=== PATIENT | female | born 1960 | race Caucasian/White ===

== ENCOUNTER → 2020-02-11 12:56 | Outpatient (CLI) | payer BC, SELFPAY ==
[2019-02-25 14:24] VITALS: BMI 26.4
--- NOTE | 2020-02-11 12:59 | BI_ITS ---
MAMMOGRAPHY - BILATERAL SCREENING REASON FOR EXAM: Female, 59 years old. Routine annual screening examination. PERTINENT HISTORY: Non-contributory. TECHNIQUE: Digital bilateral breast mayra (3D mammographic acquisition) in the CC and MLO projections. 2-D mediolateral oblique (MLO) and craniocaudad (CC) views of both breasts were obtained. CAD: Full Field Digital Mammography with Computer Added Detection was performed. COMPARISON: Comparison is made with prior outside examination dated 11/27/2017. FINDINGS: Breast Composition: There are scattered areas of fibroglandular density. There are no dominant masses or suspicious calcifications. Stable benign-appearing bilateral axillary lymph nodes. No other significant abnormalities are identified. There has been no significant change since the prior study. BI/SCREEN MAMM (CAD) W/MAYRA BILAT IMPRESSION: Stable bilateral screening mammogram. Yearly follow-up mammogram recommended. (A) ASSESSMENT CATEGORY: BIRADS Category 2: Benign. A letter regarding these results will be sent to the patient by the facility within 30 days. Approximately 10% of breast cancers are not detected by mammography. A normal mammogram should not delay biopsy of a clinically suspicious abnormality. [id number] Electronically Signed: Alejo Oliver, at 8:13 EDT , Service support ,
== END ==
PROVIDERS: PCP Family Medicine; Visit Provider Family Medicine
DX: Z12.31 Encounter for screening mammogram for malignant neoplasm of breast (principal)
CPT/HCPCS: 77063; 77067

== ENCOUNTER → 2021-02-14 13:01 | Outpatient (CLI) | payer OTHER, SELFPAY ==
--- NOTE | 2021-02-14 13:04 | BI_ITS ---
MAMMOGRAPHY - BILATERAL SCREENING REASON FOR EXAM: Female, 60 years old. Routine annual screening examination. PERTINENT HISTORY: Non-contributory. TECHNIQUE: Digital bilateral breast mayra (3D mammographic acquisition) in the CC and MLO projections. 2-D mediolateral oblique (MLO) and craniocaudad (CC) views of both breasts were obtained. CAD: Full Field Digital Mammography with Computer Added Detection was performed. COMPARISON: Comparison is made with prior study dated 02/11/2020 and 11/26/2013. FINDINGS: Breast Composition: There are scattered areas of fibroglandular density. There are no dominant masses or suspicious calcifications. Stable small benign-appearing bilateral axillary lymph nodes. No other significant abnormalities are identified. There has been no significant change since the prior study. BI/SCRN MAMM (CAD)W/MAYRA BILAT IMPRESSION: Stable bilateral screening mammogram. Yearly follow-up mammogram recommended. (A) ASSESSMENT CATEGORY: BIRADS Category 2: Benign. A letter regarding these results will be sent to the patient by the facility within 30 days. Approximately 10% of breast cancers are not detected by mammography. A normal mammogram should not delay biopsy of a clinically suspicious abnormality. [id number] Electronically Signed: Alejo Oliver MD at 14:28 EDT , Service support ,
== END ==
PROVIDERS: PCP Family Medicine; Referring Provider Family Medicine; Visit Provider Family Medicine
DX: Z12.31 Encounter for screening mammogram for malignant neoplasm of breast (principal)
CPT/HCPCS: 77063; 77067

== ENCOUNTER → 2022-02-15 | Outpatient (CLI) | payer BC, SELFPAY ==
--- NOTE | 2022-02-15 15:57 | BI_ITS ---
MAMMOGRAPHY - BILATERAL SCREENING REASON FOR EXAM: Female, 61 years old. Routine annual screening examination. PERTINENT HISTORY: Non-contributory. TECHNIQUE: Digital bilateral breast mayra (3D mammographic acquisition) in the CC and MLO projections. 2-D mediolateral oblique (MLO) and craniocaudad (CC) views of both breasts were obtained. CAD: Full Field Digital Mammography with Computer Added Detection was performed. COMPARISON: Comparison is made with prior study dated 02/14/2021 and 02/11/2020. FINDINGS: Breast Composition: There are scattered areas of fibroglandular density. There are no dominant masses or suspicious calcifications. Stable small benign-appearing bilateral axillary lymph nodes. No other significant abnormalities are identified. There has been no significant change since the prior study. BI/SCRN MAMM (CAD)W/MAYRA BILAT IMPRESSION: Stable bilateral screening mammogram. Yearly follow-up mammogram recommended. (A) ASSESSMENT CATEGORY: BIRADS Category 2: Benign. A letter regarding these results will be sent to the patient by the facility within 30 days. Approximately 10% of breast cancers are not detected by mammography. A normal mammogram should not delay biopsy of a clinically suspicious abnormality. [id number] Electronically Signed: Alejo Oliver MD at 8:37 EDT ,
== END | disposition home or self-care (01) ==
PROVIDERS: PCP Student in an Organized Health Care Education/Training Program; Visit Provider Student in an Organized Health Care Education/Training Program
DX: Z12.31 Encounter for screening mammogram for malignant neoplasm of breast (principal)
CPT/HCPCS: 77063; 77067

== ENCOUNTER → 2022-07-12 | Outpatient (CLI) | payer BC, SELFPAY ==
[2022-07-12 10:08] LABS: Hematocrit 43.6 % (37-47); Hemoglobin 14.3 g/dL (12.0-15.0); Mean Corp Hgb Conc 32.8 g/dL (32-36); Mean Corpuscular Hgb 29.8 pg (27.0-32.0); Mean Corpuscular Volume 90.8 fL (81-99); Mean Platelet Vol. 8.6 fl (6.2-12.0); Platelet Count 466 K/mm3 (150-450); RBC Distribution Width CV 12.4 % (11.6-14.6); RBC Distribution Width SD 41.2 fl (35.1-43.9); White Blood Count 7.1 K/mm3 (4.4-11.0)
[2022-07-12 10:25] LABS: AST(SGOT) 18 U/L (15-37); Alanine Aminotransfer ALT/SGPT 34 U/L (13-56); Albumin, Serum 3.8 g/dL (3.2-5.0); Alkaline Phosphatase 49 U/L (45-117); Anion Gap 5 (5-15); BUN 13 mg/dL (7-18); BUN/Creat Ratio 14.5 RATIO (10-20); Calcium,Total 9.2 mg/dL (8.5-10.1); Chloride 107 mmol/L (98-107); Cholesterol 165 mg/dL (200); EST Glomerular Filtration Rate 68 mL/min (>60); Est Glom Filt Rate - Afr Amer 82 mL/min (>60); Globulin 3.9 g/dL (2.2-4.2); Glucose 101 mg/dL (74-106); High Density Lipoprotein 66 mg/dL; Potassium 4.6 mmol/L (3.5-5.1); Protein, Total 7.7 g/dL (6.4-8.2); Sodium Level 136 mmol/L (136-145); Triglycerides 77 mg/dL; Very Low Density Lipoprotein 15 mg/dL (5-40)
== END | disposition home or self-care (01) ==
LOC: LABSPEC 09:34
PROVIDERS: PCP Student in an Organized Health Care Education/Training Program
DX: Z00.00 Encounter for general adult medical examination without abnormal findings (principal)
CPT/HCPCS: 80053; 80061; 85027

== ENCOUNTER → 2023-02-16 | Outpatient (CLI) | payer BC, SELFPAY ==
--- NOTE | 2023-02-16 15:21 | BI_ITS ---
MAMMOGRAPHY - BILATERAL SCREENING REASON FOR EXAM: Female, 62 years old. Routine annual screening examination. PERTINENT HISTORY: Non-contributory. TECHNIQUE: Digital bilateral breast mayra (3D mammographic acquisition) in the CC and MLO projections. 2-D mediolateral oblique (MLO) and craniocaudad (CC) views of both breasts were obtained. CAD: Full Field Digital Mammography with Computer Added Detection was performed. COMPARISON: Comparison is made with prior study dated February 15, 2022 and February 14, 2021. FINDINGS: Breast Composition: There are scattered areas of fibroglandular density. There are no dominant masses or suspicious calcifications. Stable benign-appearing fat containing axillary lymph nodes. No other significant abnormalities are identified. There has been no significant change since the prior study. BI/SCRN MAMM (CAD)W/MAYRA BILAT IMPRESSION: Stable bilateral screening mammogram. Yearly follow-up mammogram recommended. (A) ASSESSMENT CATEGORY: BIRADS Category 2: Benign. A letter regarding these results will be sent to the patient by the facility within 30 days. Approximately 10% of breast cancers are not detected by mammography. A normal mammogram should not delay biopsy of a clinically suspicious abnormality. [id number] Electronically Signed: Alejo Oliver MD at 8:34 EDT ,
== END | disposition home or self-care (01) ==
LOC: OPBI 15:20
DX: Z12.31 Encounter for screening mammogram for malignant neoplasm of breast (principal)
CPT/HCPCS: 77063; 77067

== ENCOUNTER → 2024-02-18 | Outpatient (CLI) | payer BC, SELFPAY ==
--- NOTE | 2024-02-18 15:33 | BI_ITS ---
MAMMOGRAPHY - BILATERAL SCREENING REASON FOR EXAM: Female, 63 years old. Routine annual screening examination. PERTINENT HISTORY: Non-contributory. TECHNIQUE: Digital bilateral breast mayra (3D mammographic acquisition) in the CC and MLO projections. 2-D mediolateral oblique (MLO) and craniocaudad (CC) views of both breasts were obtained. CAD: Full Field Digital Mammography with Computer Added Detection was performed. COMPARISON: Comparison is made with prior study dated February 16, 2023 and February 15, 2022. FINDINGS: Breast Composition: There are scattered areas of fibroglandular density. There are no dominant masses or suspicious calcifications. Stable small bilateral axillary lymph nodes. No other significant abnormalities are identified. There has been no significant change since the prior study. BI/SCRN MAMM (CAD)W/MAYRA BILAT IMPRESSION: Stable bilateral screening mammogram. Yearly follow-up mammogram recommended. (A) ASSESSMENT CATEGORY: BIRADS Category 2: Benign. A letter regarding these results will be sent to the patient by the facility within 30 days. Approximately 10% of breast cancers are not detected by mammography. A normal mammogram should not delay biopsy of a clinically suspicious abnormality. [id number] Electronically Signed: Alejo Oliver MD at 10:54 EDT ,
== END | disposition home or self-care (01) ==
LOC: OPBI 15:31
PROVIDERS: PCP Family Medicine; Referring Provider Family Medicine; Visit Provider Family Medicine
DX: Z12.31 Encounter for screening mammogram for malignant neoplasm of breast (principal)
CPT/HCPCS: 77063; 77067

== ENCOUNTER 2024-07-28 06:11 | Day surgery (SDC) | payer BC, SELFPAY ==
[2024-07-28] VITALS (8 sets, daily range): BP systolic 112–137; BP diastolic 67–78; PULSE 54–76; RESP 14–16; TEMP 36.2–36.8; O2SAT 95–98; BMI 25.3
--- NOTE | 2024-07-28 07:07 | PRE.ANES_ITS ---
ASA Classification* ASA Classification ASA Classification: 2 Assessment & Plan Anesthesia* Anesthesia Assessment Anesthesia Assessment: Discussed sedation and/or anesthesia options, risks, benefits, and alternatives with patient/parents/legal guardian/POA. Questions invited. The patient/parents/legal guardian/POA seems to understand and agrees to proceed with anesthesia plan. Reviewed the physical assessment, medical history, allergy history and patient home medications list prior to surgery/procedure/anesthetic and documented any changes. Performed airway and anesthesia risk assessments. Anesthesia Type Anesthesia Type: MAC Anesthesia Focused Assessment* Temperature: 98.2 F Pulse Rate: 76 Blood Pressure: 137/67 Respiratory Rate: 16 Pulse Ox: 98 Airway Assessment Mouth opens: >3 cm Mallampati Score: II Focused Labs Anesthesia Preop lab: CBC WBC 7.1 K/mm3 (4.4-11.0) 07/12/22 08:50 07/12/22 RBC 4.80 M/mm3 (4.2-5.4) 07/12/22 08:50 07/12/22 Hgb 14.3 g/dL (12.0-15.0) 07/12/22 08:50 07/12/22 Hct 43.6 % (37-47) 07/12/22 08:50 07/12/22 Plt Count 466 K/mm3 (150-450) H 07/12/22 08:50 07/12/22 CHEMISTRY Potassium 4.6 mmol/L (3.5-5.1) 07/12/22 08:50 07/12/22 Sodium 136 mmol/L (136-145) 07/12/22 08:50 07/12/22 BUN 13 mg/dL (7-18) 07/12/22 08:50 07/12/22 Creatinine 0.90 mg/dL (0.55-1.02) 07/12/22 08:50 07/12/22 Glucose 101 mg/dL (74-106) 07/12/22 08:50 07/12/22 COAG Pre-Assessment Diagnosis/Proposed Procedure Planned Operative Procedure(s): CSCOPE Anesthesia History 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 When Was Last Pacemaker Check QUESTION #4 FULL TEXT: You/Your Family Experience fever (hyperthermia) with Anesthesia Last Oral Intake Last Oral intake: Last Oral Intake NPO since 23:00 07/28/24 06:48 Meds taken in AM with sips of No 07/28/24 06:48 water? 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 Female Yes 07/23/24 10:38 HX of Motion Sickness Yes 07/23/24 10:38 HX of N/V After Surgery No 07/23/24 10:38 Non-Smoker Yes 07/23/24 10:38 Duration of Surgery greater No 07/23/24 10:38 than 60 minutes Number of Risk Factors 3 07/23/24 10:38 PONV Score Moderate Risk 07/23/24 10:38 Height & Weight Height & Weight: Anesthesia: Height & Weight Height 5 ft 5 in 07/28/24 06:48 Weight: 69 kg 07/28/24 06:48 Body Mass Index (BMI) 25.3 07/28/24 06:48 Respiratory Assessment Respiratory Assessment - fabric and textile factory worker: Respiratory Tract Infection Hx - fabric and textile factory worker Hx Respiratory Tract Infection No 07/23/24 10:38 STOP Sleep Apnea STOP Sleep Apnea - fabric and textile factory worker: STOP Sleep Apnea - fabric and 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 Has anyone observed you stop No 07/23/24 10:38 breathing during sleep? STOP Results Negative 07/23/24 10:38 QUESTION #5 FULL TEXT : Do you snore loudly (louder than talking or can be heard through closed doors)? 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 Specify any problems Hx of Preganancy in last 3 N/A 07/23/24 10:38 Months Nurse Filling Out Transfusion NBUCHER 07/23/24 10:38 & Questions: Date: 07/23/24 07/23/24 10:38 Time: 10:39 07/23/24 10:38 Patient unable to answer at this time (ie. confused, unrespo /Reproduction History /Reproductive History - fabric and textile factory worker: /Reproductive Hx- fabric and textile factory worker Hx Now No 07/23/24 10:38 Gestational Age (in weeks): EDC: Hx Hx Para Hx Section SAB No 07/23/24 10:38 [facility] Medical History Non-smoker Moderate persistent asthma Asthma Home Medications ?Medication ?Instructions ?Recorded ?Last Taken ?Type sertraline 25 mg tablet 25 mg PO QDAY 06/11/24 Unkno wn History spironolactone 50 mg tablet 50 mg PO QAM 06/11/24 Unkn own History biotin 1 mg capsule 2 mg PO DAILY 07/23/24 Unkno wn History calcium 100 mg capsule 200 mg PO DAILY 07/23/24 Unk nown History Allergy/AdvReac Type Severity Reaction Status Date / Time cephalexin monohydrate (From Allergy Rash Verified 07/28/24 06:48 Keflex) doxycycline Allergy Rash Verified 07/28/24 06:48 minocycline Allergy Hives Verified 07/28/24 06:48 Penicillins (PCN) Allergy Rash Verified 07/28/24 06:48 povidone-iodine (From Allergy Rash Verified 07/28/24 06:48 Betadine) soap (From Betadine) Allergy rash Verified 07/28/24 06:48 tetracycline Allergy Rash Verified 07/28/24 06:48 Family History Father Heart disease Hypertension Mother Asthma Surgical History History of wisdom tooth extraction History of appendectomy Social History Smoking Status: Never smoker alcohol intake: current alcohol intake frequency: holidays/special occasions only substance use type: does not use Review of Systems (Anesthesia) ROS Narrative System reviewed and no additional complaints, except as documented.
--- NOTE | 2024-07-28 07:25 | H&P.OPEN ---
HPI - General General Date of Service: 07/28/24 HPI Narrative SARAH FITZGERALD, is a 64 F who presents for diagnostic colonoscopy due to positive Cologuard. Patient denies any changes since last office visit. 06/11/24 office visitHPI: 64-year-old female presents due to positive Cologuard. Patient never had previous colonoscopy. Patient denies any chronic abdominal pain/nausea/vomiting/reflux. Patient denies any family history of colon cancer. Patient has bowel movements daily denies any blood. Patient states she does have loose stools maybe 4 days out of the week. [facility] Medical History Non-smoker Moderate persistent asthma Asthma Home Medications ?Medication ?Instructions ?Recorded ?Last Taken ?Type sertraline 25 mg tablet 25 mg PO QDAY 06/11/24 Unknown History spironolactone 50 mg tablet 50 mg PO QAM 06/11/24 Unknown History biotin 1 mg capsule 2 mg PO DAILY 07/23/24 Unknown History calcium 100 mg capsule 200 mg PO DAILY 07/23/24 Unknown History Allergy/AdvReac Type Severity Reaction Status Date / Time cephalexin monohydrate (From Allergy Rash Verified 07/28/24 06:48 Keflex) doxycycline Allergy Rash Verified 07/28/24 06:48 minocycline Allergy Hives Verified 07/28/24 06:48 Penicillins (PCN) Allergy Rash Verified 07/28/24 06:48 povidone-iodine (From Allergy Rash Verified 07/28/24 06:48 Betadine) soap (From Betadine) Allergy rash Verified 07/28/24 06:48 tetracycline Allergy Rash Verified 07/28/24 06:48 Family History Father Heart disease Hypertension Mother Asthma Surgical History History of wisdom tooth extraction History of appendectomy Social History Smoking Status: Never smoker alcohol intake: current alcohol intake frequency: holidays/special occasions only substance use type: does not use Past Medical/Surgical History Planned Operation Planned Operative Procedure(s): CSCOPE Previous Hospitalizations/Surgeries HX Hospitalizations: No Any Problems With Anesthesia: No You/Your Family Experience Fever (Hyperthermia) With Anes: No Cholinesterase deficiency: No Cardiovascular Hx Hypertension: No Respiratory Hx Asthma: Yes Hx Sleep Apnea: No Hx Respiratory Tract Infection/Cold (presently): No Do You Snore Loudly (louder than talking or can be heard): No Do You Often Feel Tired/ Fatigued/ Sleepy Dring Daytime?: No Has Anyone Observed You Stop Breathing During Sleep?: No Result (for STOP score): Negative Smoking Status: Never smoker Neurological Does patient have nerve stimulator: No Reproduction : No Miscellaneous Recent Exposure to Contagious Disease: No Allergies cephalexin monohydrate (From Keflex) Allergy (Verified 07/28/24 06:48) Rash hives doxycycline Allergy (Verified 07/28/24 06:48) Rash minocycline Allergy (Verified 07/28/24 06:48) Hives Penicillins (PCN) Allergy (Verified 07/28/24 06:48) Rash povidone-iodine (From Betadine) Allergy (Verified 07/28/24 06:48) Rash soap (From Betadine) Allergy (Verified 07/28/24 06:48) rash tetracycline Allergy (Verified 07/28/24 06:48) Rash hives Discharge Is Pt Admitted From a Prison, or a Nursing Home: No After D/C, Where Do you Plan to Go: Return Home Vital Signs Vital Signs Vital Signs: 07/28/24 06:48 07/28/24 06:48 07/28/24 07:07 Temperature 98.2 F 98.2 F Temperature Source Temporal Pulse Rate 76 76 Respiratory Rate 16 16 Respiratory Pattern Normal Blood Pressure 137/67 H 137/67 H Blood Pressure Mean 90 Blood Pressure Source Monitor Blood Pressure Position Semi-Fowlers Blood Pressure Location Right Arm Pulse Ox 98 98 Oxygen Delivery Method Room Air Weight Weight: 152 lb 1.903 oz Body Mass Index (BMI) 25.3 Physical Exam Const alert, oriented x3 and no apparent distress HEENT normocephalic and head/scalp atraumatic Resp normal respiratory effort Cardio regular rate GI soft to palpation and non-tender; Negative for non-distended Palpation: Negative for guarding Extremity no clubbing, cyanosis or edema Skin no rashes or lesions noted Neuro CN's II-XII intact bilaterally Psych mental status grossly normal Assessment & Plan Assessment/Plan (1) Positive colorectal cancer screening using Cologuard test: Surgery Risks - Colonoscopy I discussed with the patient the risks of the procedure: Yes Risks Include but are not Limited To: Risks include but are not limited to: Bleeding, perforation requiring further surgery, inability to complete colonoscopy requiring barium enema.
--- NOTE | 2024-07-28 07:30 | COLBX_PTH ---
PATIENT: SARAH FITZGERALD LOC: EN U#:[id number] AGE/SX: 64/F ROOM: RE07/28/[address]: Dr. Kelin Ruiz MD : 1960 BED: DIS: 07/28/2024 SPEC #: [id number] RECD: 07/28/24 12:37 STATUS: SENA REQ #: [id number] FIDEL: 07/28/24 07:[address]: Kelin Ruiz DEPT: SURGICAL PATHOLOGY RECD BY: Glen Fortune ENTERED: 07/28/24 12:37 SP TYPE: COLON BX OTHR DR: Dr. Laverne Falcon MD Tissues: A - Rectum, NOS Procedures: Surgery Specimen Level IV HEADER OPERATION: Colonoscopy biopsy PRE-OP DIAGNOSIS: Positive colorectal cancer screening using Cologuard test TISSUE SUBMITTED: A- Rectal polyp biopsy MICROSCOPIC DIAGNOSIS A. Rectum, polyp, biopsy: * Hyperplastic polyp. MICROSCOPIC DESCRIPTION Slides are reviewed. GROSS DESCRIPTION A. Received in formalin in a container labeled with the patient's name, date of , and rectal polyp is a 0.4 x 0.3 x 0.2 cm fragment of burrell-pink mucosal tissue. Submitted in toto in A1. B 07-28-2024 CPT:06522
--- NOTE | 2024-07-28 08:09 | PCM.POST.ANE ---
Anesthesia: Postop Eval I Current Vital Signs Temperature: 97.2 F Pulse Rate: 59 Blood Pressure: 130/78 Respiratory Rate: 16 Pulse Ox: 97 Oxygen Delivery Method: Room Air Assessment Airway patent: Yes Spontaneous unlabored respirations: Yes Mental status: Asleep nausea: No Vomiting: No Anesthesia Complication: No Fluid Hydration Crystalloid volume administer (ml): 60 Total IV fluid infused: 60 Progress Note Anesthesia document: Postop Eval 1 completed: Yes
--- NOTE | 2024-07-28 08:11 | OP.COLON_ITS ---
Patient Name: Gema Carcamo Procedure Date: 07/28/2024 6:57 AM Date of : 1960 Age: 64 Procedure: Colonoscopy Indications: Positive Cologuard test Providers: Kelin Ruiz MD Referring MD: Laverne Falcon Medicines: Monitored Anesthesia Care Patient Profile: This is a 64 year old female. Last Colonoscopy: none. The patient's first colonoscopy is today. Complications: No immediate complications. Procedure: Pre-Anesthesia Assessment: - Prior to the procedure, a History and Physical was performed, and patient medications and allergies were reviewed. The patient's tolerance of previous anesthesia was also reviewed. The risks and benefits of the procedure and the sedation options and risks were discussed with the patient. All questions were answered, and informed consent was obtained. Prior Anticoagulants: The patient has taken no anticoagulant or antiplatelet agents. ASA Grade Assessment: Per anesthesia. After reviewing the risks and benefits, the patient was deemed in satisfactory condition to undergo the procedure. After I obtained informed consent, the scope was passed under direct vision. Throughout the procedure, the patient's blood pressure, pulse, and oxygen saturations were monitored continuously. The colonoscope was introduced through the anus and advanced to the cecum, identified by the ileocecal valve. The colonoscopy was performed without difficulty. The patient tolerated the procedure well. The quality of the bowel preparation was good. Scope In: 7:39:36 AM Scope Withdrawal Time 0 hours 10 minutes 47 seconds Scope Out: 8:01:23 AM Total Procedure Duration Time 0 hours 21 minutes 47 seconds Findings: The perianal and digital rectal examinations were normal. A single small-mouthed diverticulum was found in the sigmoid colon. A less than 5 mm polyp was found in the rectum. The polyp was sessile. The polyp was removed with a cold biopsy forceps. Resection and retrieval were complete. The exam was otherwise without abnormality on direct and retroflexion views. Impression: - Diverticulosis in the sigmoid colon. - One less than 5 mm polyp in the rectum, removed with a cold biopsy forceps. Resected and retrieved. - The examination was otherwise normal on direct and retroflexion views. Recommendation: - Discharge patient to home. - Resume previous diet. - Continue present medications. - Await pathology results. - Repeat colonoscopy in 5-10 years for surveillance based on pathology results. Procedure Code(s): --- Professional --- 95937, Colonoscopy, flexible; with biopsy, single or multiple Diagnosis Code(s): --- Professional --- D12.8, Benign neoplasm of rectum R19.5, Other fecal abnormalities K57.30, Diverticulosis of large intestine without perforation or abscess without bleeding CPT copyright 2021 [employer]. All rights reserved. The codes documented in this report are preliminary and upon sole leather cutting machine operator review may be revised to meet current compliance requirements. MD Kelin Yi MD 07/28/2024 8:10:32 AM This report has been signed electronically. Number of Addenda: 0 Note Initiated On: 07/28/2024 6:57 AM
--- NOTE | 2024-07-28 08:11 | OP.CCLET_ITS ---
07/28/2024 Laverne Faclon [place] [id number] [place] [address] Re : Colonoscopy procedure for Gema Carcamo Dear Dr. Faclon This procedure was performed on Sunday, July 28, 2024. My impressions and recommendations are as follows: Impressions : - Diverticulosis in the sigmoid colon. - One less than 5 mm polyp in the rectum, removed with a cold biopsy forceps. Resected and retrieved. - The examination was otherwise normal on direct and retroflexion views. Recommendations : - Discharge patient to home. - Resume previous diet. - Continue present medications. - Await pathology results. - Repeat colonoscopy in 5-10 years for surveillance based on pathology results. My findings are described in the full procedure note, which is enclosed. If I can be of further assistance, please feel free to contact me at Doctor phone number(s): , Work: . Sincerely, MD Kelin Yi MD 07/28/2024 8:10:32 AM This report has been signed electronically.
--- NOTE | 2024-07-28 10:31 | PCM.POSTANE2 ---
Anesthesia Postop Eval I Sum Postop Eval Completion status Anesthesia document: Postop Eval 1 completed: Yes Anesthesia Postop Eval I Summary Anesthesia Postop Eval I Summary: Anesthesia Postop Eval I: Assessment Summary Airway patent Yes 07/28/24 08:09 [email or web address] Spontaneous unlabored Yes 07/28/24 08:09 [email or web address] respirations Mental status Asleep 07/28/24 08:09 [email or web address] nausea No 07/28/24 08:09 [email or web address] Vomiting No 07/28/24 08:09 [email or web address] Anesthesia Postop Eval I: Fluid Summary Crystalloid volume administer 60 07/28/24 08:09 [email or web address] (ml) Colloids volume administered ( ml) Blood Product volume administered (ml) Total IV fluid infused 60 07/28/24 08:09 [email or web address] Anesthesia Postop Eval I: Summary Notes Anesthesia Complication No 07/28/24 08:09 [email or web address] Anesthesia Complication Comment: Post-operative progress note Anesthesia: Postop Eval II Evaluation Mental status: Awake Pain Level: 0 nausea: No Vomiting: No
== END 2024-07-28 08:54 | disposition home or self-care (01) ==
LOC: EN 06:11 → AC 06:13
PROVIDERS: PCP Family Medicine; Referring Provider Family Medicine; Visit Provider Surgery
PROC: 0DJD8ZZ Inspection of Lower Intestinal Tract, Via Natural or Artificial Opening Endoscopic (ICD-10-PCS; CPT 45378; principal; 2024-07-28 07:25)
DX: K62.1 Rectal polyp (principal); K57.30 Diverticulosis of large intestine without perforation or abscess without bleeding; J45.40 Moderate persistent asthma, uncomplicated; Z79.899 Other long term (current) drug therapy
CPT/HCPCS: 45380; 88305; A4216; J2405

== ENCOUNTER 2024-09-25 16:02 | Observation (INO) | payer BC, SELFPAY ==
[2024-09-25 16:04] VITALS: BP 129/71; PULSE 103; RESP 16; TEMP 37.1; O2SAT 98; BMI 25.9
--- NOTE | 2024-09-25 16:22 | EX.ED.DYSGE1 ---
HPI History of Present Illness Chief Complaint: Cellulitis Informant: patient, spouse/S.O. and family Onset/Context/Timing Onset: Days Context: Gradual Onset Timing: Continuous Current Severity: Moderate Maximum Severity: Moderate Narrative Narrative: 64-year-old female history of asthma. States she was in [place] over the weekend on Sunday she felt like she got bit or stung by some but never actually saw an insect. And since that time she has had pain and swelling of her right lower leg around the ankle. When she got back in town saw her primary care physician who started her on Bactrim twice daily. She has been on that since Sunday and this is only gotten worse. I sent her in today because I think she failed outpatient therapy. She has had some chills. At times sweats. No prior history of anything like this. Prior similar symptoms: No Recent Illness/Hospitalization: No PFSH [facility] Medical History Non-smoker Moderate persistent asthma Asthma Home Medications ?Medication ?Instructions ?Recorded ?Last Taken ?Type sertraline 25 mg tablet 25 mg PO DAILY 06/11/24 09/24/24 History spironolactone 50 mg tablet 50 mg PO QAM 06/11/24 Unknown History biotin 1 mg capsule 2 mg PO DAILY 07/23/24 Unknown History calcium 100 mg capsule 200 mg PO DAILY 07/23/24 Unknown History cetirizine 10 mg tablet (24Hour 10 mg PO DAILY PRN allergy symptoms 09/25/24 09/24/24 History Allergy) sulfamethoxazole 400 1 tab PO BID 09/25/24 09/25/24 History mg-trimethoprim 80 mg tablet (Bactrim) Allergy/AdvReac Type Severity Reaction Status Date / Time cephalexin monohydrate (From Allergy Rash Verified 09/25/24 16:03 Keflex) doxycycline Allergy Rash Verified 09/25/24 16:03 minocycline Allergy Hives Verified 09/25/24 16:03 Penicillins (PCN) Allergy Rash Verified 09/25/24 16:03 povidone-iodine (From Allergy Rash Verified 09/25/24 16:03 Betadine) soap (From Betadine) Allergy rash Verified 09/25/24 16:03 tetracycline Allergy Rash Verified 09/25/24 16:03 Family History Father Heart disease Hypertension Mother Asthma Surgical History History of wisdom tooth extraction History of appendectomy Social History Smoking Status: Never smoker alcohol intake: current alcohol intake frequency: holidays/special occasions only substance use type: does not use ROS ROS ED Constitutional Constitutional ED: Reports chills, fever(s) and subjective Eyes Eyes: Denies blurry vision ENT ENT ED: Denies ear pain Cardiovascular Cardiovascular: Denies chest pain Respiratory/Chest Respiratory/Chest: Denies cough Gastrointestinal Gastrointestinal: Denies abdominal pain Genitourinary Genitourinary ED: Denies dysuria Musculoskeletal Musculoskeletal: Denies arthralgias Integumentary Reports rash; Denies abscess Neurologic Neurologic: Denies headache(s) Psychiatric Psychiatric: Denies anxiety Endocrine Endocrinology: Denies cold intolerance Hematologic/Lymphatic Hematologic/Lymphatic: Reports none Allergic/Immunologic Allergic/Immunologic ED: Denies mouth swelling, tongue swelling or urticaria EXAM Physical Exam Narrative Exam Narrative: Well-appearing seen 4-year-old female. Accompanied by family. Vital signs are stable afebrile. She does not look septic or toxic. No acute distress. H EENT exam pupils round react light. Moist pink members. Neck nontender no lymphadenopathy. Back nontender. Lungs clear to auscultation bilaterally. Heart regular rhythm rate about 100 no murmur. Chest wall ribs nontender. Abdomen soft nontender. Moving all 4 extremities. Normal strength. Normal range of motion. Neurologically intact. Right lower leg just above the ankle has an area that is edematous. Mildly tender. No bruising and discoloration consistent both with a local allergic reaction possibly a secondary infection. There is some bubbling of the skin consistent with vesicles. There is no pus. There is no lymphangitic streaking. Her foot is normal DP pulse. She is able to do dorsi and plantarflexion of the ankle. There is mild swelling of the foot. Normal touch sensation of the foot. There is no inguinal lymphadenopathy. Patient is awake and alert. No focal motor deficits. Const Vital Signs: 09/25/24 16:04 Temperature 98.7 F Temperature Source Oral Pulse Rate 103 H Respiratory Rate 16 Blood Pressure 129/71 H Blood Pressure Mean 90 Pulse Ox 98 Oxygen Delivery Method Room Air Positive well nourished and well developed; Negative for obese, cachectic, contractures or unkempt General Appearance ED: well developed and NAD; Negative for unkempt, cachectic, contractures, cyanotic, diaphoretic or pallor Nutritional Appearance: Negative for cachectic or obese HEENT Reports moist mucous membranes Negative for trauma or tenderness Eyes PERRL Neck no lymphadenopathy, supple and no JVD Chest Wall inspection of chest normal and palpation of chest normal Resp normal respiratory effort and clear to auscultation bilaterally Effort and Inspection: Negative for retractions Auscultation: Negative for rales, rhonchi, wheezes or diminished lung sounds Cardio regular rate, regular rhythm, S1 normal heart sound, S2 normal heart sound and no murmurs GI normal to inspection, nondistended, normoactive bowel sounds, non-tender, non-distended and no masses Palpation: soft; Negative for tender, guarding or rebound tenderness present Back/Spine no CVA tenderness General Back: Negative for CVA tenderness Cervical Spine: Negative for cervical spine tenderness Thoracic Spine / Upper Back: Negative for thoracic spinal tenderness or paraspinal muscle tenderness Lumbar Spine / Lower Back: Negative for lumbar spinal tenderness Extremity Negative for normal to inspection Extremity Narrative: Right lower lateral leg and ankle. There is about a 6 inch area by about 4 inches wide with erythema and bruising. Mild tenderness. Edema. Vesicles. No pus. No subcu air. No lymphangitic streaking. No inguinal lymphadenopathy. Foot is mildly swollen but is not red or hot. Consistent with dependent edema.Skin is not necrotic. General Extremety ED: Yes edema and tenderness General Extremity: edema Neuro oriented x3, CN's II-XII intact bilaterally and no sensory deficits noted Sensorium / Orientation: alert; Negative for orientation impaired, lethargic or stuporous Motor Exam: strength 5/5 throughout Psych mental status grossly normal Appearance: Negative for unkempt Skin No no rashes or lesions noted, no wounds and skin turgor normal Skin Narrative: Right lower leg mildly edematous, red and bruising. Vesicles. Mildly tender. No pustules. No lymphangitic streaking. No inguinal lymphadenopathy. No septic joint. General Skin Exam: Negative for jaundice or pallor Rashes: rashes noted MDM MDM MDM Narrative Medical decision making narrative: 64-year-old female right lower leg possible insect bite with either local allergic reaction or secondary infection. Patient reportedly has been on Bactrim since Sunday is only gotten worse. She will be given IV clindamycin she has both penicillin and cephalexin allergy. Screening labs and a CT of her lower extremity be obtained. But clinically I do not think this is necrotizing fasciitis. Repeat exam patient is doing well. I have reviewed her CAT scan I do not see any subcu air. There is edema. Awaiting the radiologist formal interpretation. The patient's wound is unchanged from I initially saw her 2 hours ago. I will hospitalist on page for admission. This may be secondary infection versus all localized allergic reaction. Given that she has been on outpatient antibiotics and it looks significantly worse I think it is prudent to be conservative and continue her on IV antibiotics and reevaluate this. Patient and family are comfortable with the current plan. I have instructed them on all test results so far. History & Record Review Discussion w/independent historian: Family Lab Data Attestation: I reviewed the patient's lab results. Lab results narrative: CBC shows a white count 8. H&H is 14 and 41. Platelets of 354. Electrolytes show sodium 134. Gap 12. Normal BUN 11 creatinine 01. Glucose 142. Labs: Laboratory Results - last 24 hr 09/25/24 16:30 WBC 8.6 RBC 4.72 Hgb 14.1 Hct 41.0 MCV 86.9 MCH 29.9 MCHC 34.4 RDW Std Deviation 38.7 RDW Coeff of Levi 12.0 Plt Count 354 MPV 8.3 Immature Gran % (Auto) 0.200 Neut % (Auto) 71.8 H Lymph % (Auto) 16.4 L [place] % (Auto) 10.0 Eos % (Auto) 0.8 Baso % (Auto) 0.8 Absolute Neuts (auto) 6.2 Absolute Lymphs (auto) 1.41 Nucleated RBC % 0 Sodium 134 Potassium 4.4 Chloride 101 Carbon Dioxide 20.8 L Anion Gap 12 BUN 11 Creatinine 1.05 Estim Creat Clear Calc 54.11 Est GFR (MDRD) Non-Af 60 BUN/Creatinine Ratio 10.3 Glucose 142 H Calcium 9.1 Discharge Plan Triage Chief Complaint: Cellulitis ED Provider: Dragan Strange Dx/Rx/DC Orders Clinical Impression: Cellulitis, Allergic reaction, History of asthma Prescriptions: No Action sertraline 25 mg tablet 25 mg PO DAILY spironolactone 50 mg tablet 50 mg PO QAM Patient Comments: PT IS NOT TAKING WHILE TAKING HER BACTRIM. calcium 100 mg capsule 200 mg PO DAILY Patient Comments: UNSURE OF STRENGTH, BUT TAKES TWO BIG PILLS biotin 1 mg capsule 2 mg PO DAILY Patient Comments: GUMMIES, UNSURE OF STRENGTH sulfamethoxazole-trimethoprim [Bactrim] 400-80 mg tablet 1 tab PO BID cetirizine [24Hour Allergy] 10 mg tablet 10 mg PO DAILY PRN (Reason: allergy symptoms) Primary Care Provider: Laverne Falcon Referrals: Laverne Falcon MD [Primary Care Provider] - Print Language: Micronesian Disposition Disposition: Acute Care Hospital [facility]
--- NOTE | 2024-09-25 16:29 | CT_ITS ---
PROCEDURE: EXTREMITY LOWER WITH CONTRAST 09/25/2024 REASON FOR EXAM: RIGHT LOWER LEG INSECT BITE WITH SUSPECTED SECONDA TECHNIQUE: Axial CT images of the right lower extremity obtained with intravenous contrast. Coronal and Sagittal reconstruction series were provided. CONTRAST: 99 mL Isovue-300 One or more dose reduction techniques were used (e.g., Automated exposure control, adjustment of the mA and/or kV according to patient size, use of iterative reconstruction technique). RADIATION DOSE SUMMARY: CTDlvol: 15.4 mGy DLP: 956 mGycm COMPARISON: None FINDINGS: No displaced fracture. Bone mineral density is subjectively normal. There is a tiny lucency along the medial femoral condyle articular surface. Tiny calcifications adjacent to the navicular may represent accessory ossicles or sequela of remote injury. Small plantar and Achilles heel spurs. There is skin thickening and edema throughout the soft tissues of the ankle and foot, predominantly laterally. No well-formed fluid collection. No subcutaneous emphysema. There is three-vessel runoff into the foot. CT/Extremity Lower WITH Contrast IMPRESSION: Skin thickening and edema throughout the ankle and foot soft tissues, suggestiv e of the clinical diagnosis of cellulitis. No well-formed drainable fluid collection or subcutaneous emphysema. Reading Location: [facility]
[2024-09-25 16:37] LABS: Absolute Lymphocyte Count 1.41 X10^3/uL (0.83-4.51); Absolute Neutrophil Count 6.2 X10^3/uL (2.0-7.7); Basophil# 0.07 X10^3/uL; Basophil% 0.8 % (0-1); Eosinophil# 0.07 X10^3/uL; Eosinophils% 0.8 % (0-5); Hemoglobin 14.1 g/dL (12.0-15.0); Lymphocyte # 1.41 X10^3/ul (0.83-4.51); Lymphocyte % 16.4 % (19-41); Mean Corp Hgb Conc 34.4 g/dL (32-36); Mean Corpuscular Hgb 29.9 pg (27.0-32.0); Mean Corpuscular Volume 86.9 fL (81-99); Mean Platelet Vol. 8.3 fl (6.2-12.0); Monocyte# 0.86 X10^3/uL; NRBC Flagged by Analyzer 0 % (0-5); Neutrophil # 6.18 X10^3/uL (2.7-7.7); Neutrophil % 71.8 % (47-70); Platelet Count 354 K/mm3 (150-450); RBC Distribution Width SD 38.7 fl (35.1-43.9); Red Blood Count 4.72 M/mm3 (4.2-5.4); White Blood Count 8.6 K/mm3 (4.4-11.0)
[2024-09-25] MEDS: Ondansetron 4 MG/2 ML Vial IV (16:57)
[2024-09-25] MEDS: Clindamycin 900 MG/50 ML BAG 75 MG IV (16:57)
[2024-09-25 17:06] LABS: Anion Gap 12 (5-15); BUN 11 mg/dL (4-19); BUN/Creat Ratio 10.3 RATIO (10-20); Calcium,Total 9.1 mg/dL (7.6-11.0); Carbon Dioxide 20.8 mmol/L (21.0-32.0); Chloride 101 mmol/L (98-108); Creatinine, Serum 1.05 mg/dL (0.70-1.20); EST Glomerular Filtration Rate 60 (>60); Estimated Creatinine Clearance 54.11 ml/min (50-250); Glucose 142 mg/dL (70-99); Potassium 4.4 mmol/L (3.3-5.1); Sodium Level 134 mmol/L (133-145)
--- NOTE | 2024-09-25 17:45 | PCM.HP.STD ---
HPI - General General Date of Admission: 09/25/24 Date of Service: 09/25/24 Chief Complaint: Right lower extremity swelling and redness HPI Narrative SARAH FITZGERALD, is a 64 F who present to the emergency department at [facility] on 09/25/2024 with a chief complaint of right lower extremity swelling and erythema. Patient was recently in [place] over the weekend and on Sunday she was [place] [employer] and felt like she got a bite or sting her right lateral leg but never actually saw an insect. Since that point in time she has developed a worsening right lower extremity swelling and erythema along with pain. She has had concomitant symptoms to include nausea and had a fever at her primary care's office visit today at 100.5. When she came back home she saw her primary care physician who started her on Bactrim DS twice daily. She has been on that for 3 days now and having worsening symptoms. Her primary care physician reevaluated her today and sent her to the emergency department for admission due to failure of outpatient therapy. Patient has had chills and night sweats as well. She has never had anything like this previously. Vital signs on presentation showed temperature of 98.7, heart rate 103, respiratory 16, blood pressure was 129/71 and pulse ox was 98% on room air. CBC is unremarkable but she does have a left shift with a 71.8% neutrophilia. Chemistry panel is unremarkable other than hyperglycemia with a glucose of 142. A CT of her lower extremity was obtained by the emergency department physician to rule out any abscess or subcutaneous emphysema and while at this showed skin thickening and edema throughout the ankle and soft tissue's of foot it was negative otherwise. She was treated with clindamycin emergency department and will go ahead and transition to Levaquin on admission. I doubt this is MRSA since she has been on Bactrim and has been worsening however an MRSA PCR is pending and we will consider vancomycin if that is positive. She will be admitted due to outpatient failure. COUNTS INCLUDE 234 BEDS AT THE [facility] Medical History Non-smoker Moderate persistent asthma Asthma Home Medications ?Medication ?Instructions ?Recorded ?Last Taken ?Type sertraline 25 mg tablet 25 mg PO DAILY 06/11/24 09/24/24 History spironolactone 50 mg tablet 50 mg PO QAM 06/11/24 Unknown History biotin 1 mg capsule 2 mg PO DAILY 07/23/24 Unknown History calcium 100 mg capsule 200 mg PO DAILY 07/23/24 Unknown History cetirizine 10 mg tablet (24Hour 10 mg PO DAILY PRN allergy symptoms 09/25/24 09/24/24 History Allergy) sulfamethoxazole 400 1 tab PO BID 09/25/24 09/25/24 History mg-trimethoprim 80 mg tablet (Bactrim) Allergy/AdvReac Type Severity Reaction Status Date / Time cephalexin monohydrate (From Allergy Rash Verified 09/25/24 16:03 Keflex) doxycycline Allergy Rash Verified 09/25/24 16:03 minocycline Allergy Hives Verified 09/25/24 16:03 Penicillins (PCN) Allergy Rash Verified 09/25/24 16:03 povidone-iodine (From Allergy Rash Verified 09/25/24 16:03 Betadine) soap (From Betadine) Allergy rash Verified 09/25/24 16:03 tetracycline Allergy Rash Verified 09/25/24 16:03 Family History Father Heart disease Hypertension Mother Asthma Surgical History History of wisdom tooth extraction History of appendectomy Social History (Updated 09/25/24 @ 18:22 by Aurora Comer) household members: spouse Smoking Status: Never smoker alcohol intake: current alcohol intake frequency: holidays/special occasions only substance use type: does not use ROS Constitutional Constitutional: Reports chills, fever(s), malaise and night sweats; Denies anorexia, change in weight, fatigue, weakness or other Eyes Eyes: Denies blurry vision, change in eye color, change in vision, discharge from eye(s), double vision, erythema, eye pain, loss of vision or other ENT HEENT: Denies abnormal hearing, dysphagia, ear pain, epistaxis, headache(s), hearing loss, nasal congestion, nasal discharge, post nasal drip, sinus pressure, sore throat or other Cardiovascular Cardiovascular: Denies chest pain, claudication, dyspnea on exertion, edema, lightheadedness, orthopnea, palpitations, paroxysmal nocturnal dyspnea, rapid heart rate, syncope or other Respiratory/Chest Respiratory/Chest: Denies cough, dyspnea, excessive phlegm production, hemoptysis, productive cough, shortness of breath at rest, shortness of breath with exertion, wheezing or other Gastrointestinal Gastrointestinal: Reports nausea; Denies abdominal pain, coffee ground emesis, constipation, diarrhea, dyspepsia, hematemesis, hematochezia, loose stools, melena, vomiting or other Genitourinary Genitourinary: Denies burning urination, difficulty urinating, dysuria, hematuria, nocturia, urinary frequency, urinary hesitancy, urinary incontinence, urinary urgency or other Musculoskeletal Musculoskeletal: Reports other Details: Right foot/lower leg pain Neurologic Neurologic: Denies abnormal gait, abnormal speech, confusion, disequilibrium, dizziness, focal weakness, headache(s), numbness, paresthesias, seizure-like activity, seizures, syncope, tingling, tremor(s) or other Psychiatric Psychiatric: Reports depression; Denies anxiety, homicidal ideation, suicidal ideation or other Endocrine Endocrinology: Denies change in body appearance, cold intolerance, excessive sweating, heat intolerance, polydipsia, polyuria or other Hematologic/Lymphatic Hematologic/Lymphatic: Denies anemia, easy bleeding, easy bruising, lymphadenopathy or other Allergic/Immunologic Allergic/Immunologic: Reports rhinitis and asthma; Denies hives, eczemia or other Vital Signs Vital Signs Vital Signs: 09/25/24 16:04 Temperature 98.7 F Temperature Source Oral Pulse Rate 103 H Respiratory Rate 16 Blood Pressure 129/71 H Blood Pressure Mean 90 Pulse Ox 98 Oxygen Delivery Method Room Air Weight Weight: 70.76 kg Body Mass Index (BMI) 25.9 Physical Exam Const alert, oriented x3, no apparent distress, average body habitus, healthy appearing and well nourished Constitutional Narrative: Very pleasant, upper middle-aged, white female, sitting up in bed, spouse at bedside, appears comfortable, does not look toxic General Appearance: cooperative HEENT normocephalic, head/scalp atraumatic and moist oral mucous membranes Resp normal respiratory effort, no retractions, no use of accessory muscles and clear to auscultation bilaterally Auscultation: Negative for rales, rhonchi or wheezes Cardio regular rate, regular rhythm, S1 normal heart sound, S2 normal heart sound, no murmurs, no rub, no gallops and no clicks GI normal to inspection, nondistended, normoactive bowel sounds, soft to palpation and non-tender Extremity Extremity Narrative: 1+ pitting edema right lower extremity from mid tibia to foot, no cyanosis or clubbing, left lower extremity within normal limits Skin Skin Narrative: Significantly erythematous area on the right lateral ankle with some superficial blistering and tenderness, increased tissue temperature Neuro oriented x3, moves all extremities and no focal motor deficits Speech: speech normal Psych affect normal Psych Narrative: Mildly anxious due to current situation but very pleasant interacts appropriately Results Lab / Micro Data 09/25/24 16:30 09/25/24 16:30 Labs: Laboratory Results - last 24 hr 09/25/24 16:30: WBC 8.6, RBC 4.72, Hgb 14.1, Hct 41.0, MCV 86.9, MCH 29.9, MCHC 34.4, RDW Std Deviation 38.7, RDW Coeff of Levi 12.0, Plt Count 354, MPV 8.3, Immature Gran % (Auto) 0.200, Neut % (Auto) 71.8 H, Lymph % (Auto) 16.4 L, [place] % (Auto) 10.0, Eos % (Auto) 0.8, Baso % (Auto) 0.8, Absolute Neuts (auto) 6.2, Absolute Lymphs (auto) 1.41, Nucleated RBC % 0, Sodium 134, Potassium 4.4, Chloride 101, Carbon Dioxide 20.8 L, Anion Gap 12, BUN 11, Creatinine 1.05, Estim Creat Clear Calc 54.11, Est GFR (MDRD) Non-Af 60, BUN/Creatinine Ratio 10.3, Glucose 142 H, Calcium 9.1 Assessment & Plan Assessment/Plan (1) Cellulitis: PLAN: Plan Right lower extremity cellulitis - Failed outpatient therapy and having systemic symptoms including fever, and chills - Tmax as an outpatient today was 100.5 - Check CRP/ESR/Pro-Ishaan - Patient with multiple antibiotic allergies so we utilize Levaquin - Will check MRSA PCR and start vancomycin if positive - Outline red area - Elevate lower extremity - CT of the right lower extremity shows skin thickening and edema throughout the ankle and soft tissues of the foot but no fluid collection or subcutaneous emphysema - Stop Bactrim Hyperglycemia - This is nonfasting - Will check hemoglobin A1c - May be reactive from infection Seasonal allergies - Continue home cetirizine Asthma - As needed albuterol Depression - Continue home Zoloft DVT prophylaxis - Lovenox subcu daily CODE STATUS Full code Charges/Coding Visit Charges Inpatient E&M: 03268 Init Hosp L2
[2024-09-25 18:27] VITALS: BP 132/76; PULSE 71; RESP 15; TEMP 36.6; O2SAT 98
[2024-09-25 18:44] LABS: Procalcitonin 0.15 ng/mL (<=0.10)
[2024-09-25 19:08] VITALS: BP 116/67; PULSE 67; RESP 16; TEMP 36.9; O2SAT 98
[2024-09-25 19:56] VITALS: BMI 27.4
[2024-09-25 20:37] LABS: Erythrocyte Sedimentation Rate 26 mm/hr (0-30)
--- OUTSIDE RECORDS SUMMARY | 2024-09-25 22:08 | XMS RPT_ITS | CCD ---
Author Organization [facility] Care Team Providers Care Dope Edger Name Role Phone Domo OLAFTeodora Kecia Unavailable Unavaila ble CHAGO BENNETT DO Attending Unavailable CHAGO BENNETT DO Primary Care Unavailable Ezekiel KENYON, Dr. Galloway Primary Care Provider [phone] Ezekiel KENYON, Dr. Galloway Referring Provider Sara KENYON, Dr. Neville Attending Provider [phone] Sara KENYON, Dr. Neville Other Provider Laverne Falcon Primary Care Unavailable Kelin Ruiz Consulting Unavailable Kelin Ruiz Attending Unavailable Laverne Falcon Referring Unavailable Laverne Falcon Primary Care Unavailable Kelin Ruiz Attending Unavailable Laverne Falcon Referring Unavailable Laverne Falcon Referring Unavailable Laverne Falcon Primary Care Unavailable Laverne Falcon Attending Unavailable Laverne Falcon Referring Unavailable Kelin Ruiz Attending Unavailable Laverne Falcon Primary Care Unavailable Allergies Allergy Classification Reported Allergen(s) Allergy Type Date of Onset Reaction(s) Facility (1 source) Cephalexin Drug Allergy 6 hives [facility] Work Phone: (1 source) Codeine Drug Allergy 6 nausea, vomiting [facility] Work Phone: (1 source) Doxycycline Drug Allergy 6 hives [facility] Work Phone: (1 source) Morphine Drug Allergy 6 nausea ,vomiting [facility] Work Phone: (1 source) penicillin G benzathine / penicillin G procaine Drug Allergy 6 Hives [facility] Work Phone: (1 source) Povidone-Iodine Drug Allergy 6 Hives [facility] Work Phone: (5 sources) Cephalexin; Translations: [cephalexin monohydrate] Drug Allergy 9 Unknown, [facility] Comment on above: hives (4 sources) Doxycycline Drug Allergy 9 Unknown, [facility] (4 sources) Minocycline [facility] 9 [facility], [facility] (4 sources) Penicillins Allergy to substance 9 Nausea, Rash [facility] (4 sources) Povidone-Iodine Drug Allergy 9 Unknown, [facility] (4 sources) Tetracycline Drug Allergy 9 Unknown, [facility] Comment on above: hives (5 sources) soap; Translations: [soap] Allergy to substance 9 Unknown, [facility] (1 source) Doxycycline Drug Allergy 5 [facility] (1 source) Minocycline Drug Allergy 5 [facility] (1 source) Penicillins Drug allergy (disorder) 5 [facility] (1 source) Povidone-Iodine Drug Allergy 5 [facility] (1 source) Tetracycline Drug Allergy 5 [facility] Medications Current Medications Medication Drug Class(es) Dates Sig (Normalized) Sig (Original) biotin 1 mg oral capsule (1 source) Start: 07-23-2024 take 2 capsules by mouth once daily Biotin 1 mg capsule Active 2 mg PO DAILY July 23, 2024 12:00am Calcium (1 source) Phosphate Binder, Calcium Start: 07-23-2024 take 2 capsules by mouth once daily Calcium 100 mg capsule Active 200 mg PO DAILY July 23, 2024 12:00am sertraline 25 mg oral tablet (6 sources) Serotonin Reuptake Inhibitor Start: 06-11-2024 take 1 tablet by mouth once daily Sertraline 25 mg tablet Active 25 mg PO daily June 11, 2024 1:00am Start: 11-13-2014 End: 03-02-2023 take 1 tablet by mouth once daily Sertraline 50 MG tablet Discontinued 50 mg PO DAILY November 13, 2014 12:00am March 02, 2023 11:30am spironolactone 50 mg oral tablet (6 sources) Aldosterone Antagonist Start: 06-11-2024 take 1 tablet by mouth once daily in the morning Spironolactone 50 mg tablet Active 50 mg PO EVERY MORNING June 11, 2024 1:00am Start: 11-13-2014 End: 03-02-2023 take 1 tablet by mouth once daily Spironolactone 50 MG tablet Discontinued 50 mg PO DAILY November 13, 2014 12:00am March 02, 2023 11:30am Completed/Discontinued Medications Medication Drug Class(es) Dates Sig (Normalized) Sig (Original) [id number] 200 actuat albuterol 0.09 mg/actuat metered dose inhaler (5 sources) beta2-Adrenergic Agonist Start: 02-19-2018 End: 03-02-2023 Albuterol Sulfate (Proair Hfa) 90 mcg/actuation HFA aerosol inhaler Discontinued 1 NMA INHALATION EVERY 6 HOURS as needed February 19, 2018 12:00am March 02, 2023 11:31am Start: 02-19-2018 take 1 puff(s) by in halation every six hours Albuterol Sulfate (Proair Hfa) 90 mcg/actuation HFA aerosol inhaler Active 1 PUFF INHALATION EVERY 6 HOURS February 19, 2018 12:00am Start: 07-27-2015 take 108 ug by inhal ation every four to six hours as needed PROAIR HFA 108 (90 Base) MCG/ACT AERS INH q4-6 hr as needed ALBUTEROL SULFATE [id number] Jermaine Mora ALPRAZolam 1 mg oral tablet (4 sources) Benzodiazepine Start: 11-13-2014 End: 03-02-2023 take 1 tablet by mouth three times daily Alprazolam 1 MG tablet Discontinued 1 mg PO THREE TIMES A DAY November 13, 2014 12:00am March 02, 2023 11:31am azithromycin 250 mg oral tablet (3 sources) Macrolide Antimicrobial Start: 03-06-2023 End: 06-11-2024 Azithromycin 250 mg tablet Discontinued 250 mg PO daily March 06, 2023 1:00am June 11, 2024 3:47pm 2 tablets today, then 1 tablet daily on days 2 through 11 Start: 07-27-2015 End: 10-28-2015 AZITHROMYCIN 250 MG TABS 2 t ablets by mouth today and then 1 tablet daily for the next 4 days AZITHROMYCIN [id number] Jermaine Mora benzonatate 100 mg oral capsule (1 source) Non-narcotic Antitussive Start: 03-02-2023 End: 07-23-2024 take 2 capsules by mouth three times daily as needed for cough Benzonatate 100 mg capsule Discontinued 200 mg PO THREE TIMES A DAY as needed for cough March 02, 2023 1:00am July 23, 2024 10:37am Budesonide-Formote rol (19 sources) Corticosteroid, beta2-Adrenergic Agonist Start: 05-24-2020 End: 03-02-2023 Budesonide-Formote rol (Symbicort) 160-4.5 mcg/actuation HFA aerosol inhaler Discontinued 2 NMA INHALATION TWICE A DAY 10.2 May 24, 2020 9:00am March 02, 2023 11:31am Start: 05-24-2020 take 1 puff(s) by in halation twice daily Budesonide-Formoterol (Symbicort) 160-4.5 mcg/actuation HFA aerosol inhaler Active 2 PUFF INHALATION TWICE A DAY 10.2 May 24, 2020 9:00am Start: 02-19-2018 End: 05-24-2020 Budesonide-Formoterol (Symbi trev) 160-4.5 mcg/actuation HFA aerosol inhaler Discontinued 2 NMA INHALATION TWICE A DAY 10.2 February 25, 2019 3:40pm May 24, 2020 9:00am Start: 02-19-2018 End: 05-24-2020 take 1 puff(s) by inhalation twice daily Budesonide-Formoterol (Symbicort) 160-4.5 mcg/actuation HFA aerosol inhaler Discontinued 2 PUFF INHALATION TWICE A DAY 10.2 February 25, 2019 3:40pm May 24, 2020 9:00am Start: 07-27-2015 End: 10-28-2015 take 2 puff(s) by inhalation twice daily SYMBICORT 160-4.5 MCG/ACT AERO 2 puffs INH Twice daily BUDESONIDE-FORMOTEROL FUMARATE [id number] Jermaine Mora fluticasone propionate 0.05 mg/actuat metered dose nasal spray (8 sources) Corticosteroid Start: 02-25-2019 End: 03-02-2023 Fluticasone Propionate 50 mcg/actuation spray,suspension Discontinued 2 NMA INTRANASAL DAILY February 25, 2019 1:00am March 02, 2023 11:31am Start: 02-25-2019 Fluticasone Pr opionate Active 2 SPRAY INTRANASAL DAILY February 25, 2019 1:00am End: 07-27-2015 take 2 puff(s) by inhalation twice daily FLOVENT HFA 110 MCG/ACT AERO 2 puffs inhalation 2 times daily after using albuterol FLUTICASONE PROPIONATE HFA [id number] Rozina Mason End: 01-20-2016 FLONASE ALLERGY RELIEF 50 MC G/ACT SUSP 2 sprays each nostril as needed FLUTICASONE PROPIONATE [id number] Teodora Oliveros LPN methylPREDNISolone 4 mg oral tablet (1 source) Corticosteroid Start: 03-02-2023 End: 03-08-2023 take 1 tablet by mouth once Methylprednisolone (Medrol (Michael)) 4 mg tablets,dose pack Discontinued 4 mg PO per package directions 11 10March 02, 2023 1:00am March 07, 2023 1:00am March 08, 2023 1:05am ondansetron 4 mg disintegrating oral tablet (4 sources) Serotonin-3 Receptor Antagonist Start: 11-13-2014 End: 03-02-2023 take 1 tablet by mouth every eight hours as needed for nausea Ondansetron 4 MG tablet Discontinued 4 mg PO EVERY 8 HOURS NEEDED as needed for Nausea November 13, 2014 12:00am March 02, 2023 11:30am predniSONE 10 mg oral tablet (1 source) Start: 07-27-2015 End: 08-08-2015 PREDNISONE 10 MG TABS Take 4 tabs by mouth for 3 days, then 3 tabs by mouth for 3 days, then 2 tabs by mourth for 3 days, then 1 tab by mouth for 3 days. PREDNISONE [id number] Jermaine W Morgan Problems Active Problems Problem Classification Problem Date Documented Da te Episodic/Chronic Acute bronchitis (1 source) Acute bronchitis; Translations: [Acute bronchitis, unspecified] 03-02-2023 Episodic Asthma (5 sources) Mild intermittent asthma; Translations: [Moderate persistent asthma] Onset: 10-28-2015 10-28-2015 Chronic Other gastrointestinal disorders (3 sources) Stool DNA-based colorectal cancer screening positive; Translations: [Other fecal abnormalities] 06-11-2024 Episodic Other gastrointestinal disorders (2 sources) Other fecal abnormalities; Translations: [Other fecal abnormalities] Onset: 08-06-2024 Episodic Other upper respiratory disease (4 sources) Allergic rhinitis; Translations: [Allergic rhinitis, unspecified] 02-25-2019 Chronic Comment on above: Spring and fall Other upper respiratory infections (3 sources) Acute upper respiratory infection, unspecified; Translations: [Acute pharyngitis] Onset: 05-25-2022 Episodic Past or Other Problems Problem Classification Problem Date Documented Da te Episodic/Chronic Other lower respiratory disease (1 source) Chronic cough; Translations: [Cough] Onset: 07-27-2015 07-27-2015 Episodic Other screening for suspected conditions (not mental disorders or infectious disease) (1 source) Encounter for screening mammogram for malignant neoplasm of breast; Translations: [Encounter for screening mammogram for malignant neoplasm of breast] Onset: 03-11-2024 Episodic Results Test Name Value Interpretation Reference Range Facility Colonoscopy Reporton 025 Colonoscopy Report Medical Records Department [address] [place] [address] Colonoscopy Report MR#: [id number] Acct: [id number] Name: GEMA CARCAMO Rep #: [id number] : 1960 64 From: Kelin Ruiz MD PCP: Dr. Laverne Falcon MD Status:REG [facility] Patient Name: Gema Carcamo Procedure Date: 07/28/2024 6:57 AM Date of : 1960 Age: 64 Procedure: Colonoscopy Indications: Positive Cologuard test Providers: Kelin Ruiz MD Referring MD: Laverne Falcon Medicines: Monitored Anesthesia Care Patient Profile: This is a 64 year old female. Last Colonoscopy: none. The patient's first colonoscopy is today. Complications: No immediate complications. Procedure: Pre-Anesthesia Assessment: - Prior to the procedure, a History and Physical was performed, and patient medications and allergies were reviewed. The patient's tolerance of previous anesthesia was also reviewed. The risks and benefits of the procedure and the sedation options and risks were discussed with the patient. All questions were answered, and informed consent was obtained. Prior Anticoagulants: The patient has taken no anticoagulant or antiplatelet agents. ASA Grade Assessment: Per anesthesia. After reviewing the risks and benefits, the patient was deemed in satisfactory condition to undergo the procedure. After I obtained informed consent, the scope was passed under direct vision. Throughout the procedure, the patient's blood pressure, pulse, and oxygen saturations were monitored continuously. The colonoscope was introduced through the anus and advanced to the cecum, identified by the ileocecal valve. The colonoscopy was performed without difficulty. The patient tolerated the procedure well. The quality of the bowel preparation was good. Scope In: 7:39:36 AM Scope Withdrawal Time 0 hours 10 minutes 47 seconds Scope Out: 8:01:23 AM Total Procedure Duration Time 0 hours 21 minutes 47 seconds Findings: The perianal and digital rectal examinations were normal. A single small-mouthed diverticulum was found in the sigmoid colon. A less than 5 mm polyp was found in the rectum. The polyp was sessile. The polyp was removed with a cold biopsy forceps. Resection and retrieval were complete. The exam was otherwise without abnormality on direct and retroflexion views. Impression: - Diverticulosis in the sigmoid colon. - One less than 5 mm polyp in the rectum, removed with a cold biopsy forceps. Resected and retrieved. - The examination was otherwise normal on direct and retroflexion views. Recommendation: - Discharge patient to home. - Resume previous diet. - Continue present medications. - Await pathology results. - Repeat colonoscopy in 5-10 years for surveillance based on pathology results. Procedure Code(s): --- Professional --- 86210, Colonoscopy, flexible; with biopsy, single or multiple Diagnosis Code(s): --- Professional --- D12.8, Benign neoplasm of rectum R19.5, Other fecal abnormalities K57.30, Diverticulosis of large intestine without perforation or abscess without bleeding CPT copyright 2021 [employer]. All rights reserved. The codes documented in this report are preliminary and upon night worker review may be revised to meet current compliance requirements. MD Kelin Yi MD 07/28/2024 8:10:32 AM This report has been signed electronically. Number of Addenda: 0 Note Initiated On: 07/28/2024 6:57 AM 07/28/24810 Date Kelin Danielsigner Signature: Date (if indicated) CC: Dr. Laverne Falcon MD; Dr. Kelin Ruiz MD Date Dictated: 07/28/24656 Date Transcribed: Cell Feed Department Supervisor: TR Joshua [facility] MR/POSTOP.[facility] 07-28-2024 MR/POSTOP.[facility] Medical Records Department [address] [place] [address] Anesthesia Postop Eval I 07/28/24808 MR#: [id number] Acct: [id number] Name: GEMA CARCAMO Rep #: [id number] : 1960 64 From: Francisco Baeza PCP: Dr. Laverne Falcon MD Status:REG [facility] Y Race: C Location: [place] [address] Anesthesia: Postop Eval I Current Vital Signs Temperature: 97.2 F Pulse Rate: 59 Blood Pressure: 130/78 Respiratory Rate: 16 Pulse Ox: 97 Oxygen Delivery Method: Room Air Assessment Airway patent: Yes Spontaneous unlabored respirations: Yes Mental status: Asleep nausea: No Vomiting: No Anesthesia Complication: No Fluid Hydration Crystalloid volume administer (ml): 60 Total IV fluid infused: 60 Progress Note Anesthesia document: Postop Eval 1 completed: Yes 07/28/24808 Date Francisco Baeza Cosigner Signature: Date CC: Signed Normal [facility] [id number] 07-28-2024 MR/POSTOPAN2 Medical Records Department [address] [place] [address] Anesthesia Postop Eval II 07/28/24 103 MR#: [id number] Acct: [id number] Name: GEMA CARCAMO Rep #: [id number] : 1960 64 From: Destin Naranjo MD PCP: Dr. Laverne Falcon MD Status:[facility] Y Race: C Location: EN Anesthesia Postop Eval I Sum Postop Eval Completion status Anesthesia document: Postop Eval 1 completed: Yes Anesthesia Postop Eval I Summary Anesthesia Postop Eval I Summary: Anesthesia Postop Eval I: Assessment Summary Airway patent Yes 07/28/24 08:09 [email or web address] Spontaneous unlabored Yes 07/28/24 08:09 [email or web address] respirations Mental status Asleep 07/28/24 08:09 [email or web address] nausea No 07/28/24 08:09 [email or web address] Vomiting No 07/28/24 08:09 [email or web address] Anesthesia Postop Eval I: Fluid Summary Crystalloid volume administer 60 07/28/24 08:09 [email or web address] (ml) Colloids volume administered ( ml) Blood Product volume administered (ml) Total IV fluid infused 60 07/28/24 08:09 [email or web address] Anesthesia Postop Eval I: Summary Notes Anesthesia Complication No 07/28/24 08:09 [email or web address] Anesthesia Complication Comment: Post-operative progress note Anesthesia: Postop Eval II Evaluation Mental status: Awake Pain Level: 0 nausea: No Vomiting: No 07/28/24 103 Date Destin Danielsigner Signature: Date CC: Signed Normal [facility] Surgery Specimen Level Mauro 07-28-2024 Surgery Specimen Level IV Patient Age/Sex Location Account Attending Physician GEMA CARCAMO 64/F EN [id number] Dr. Kelin Ruiz MD Specimen: [id number] Received: 07/28/24 Status: LENOKapil Cardenas Num: [id number] Spec Type: COLON BX Subm Dr: Dr. Kelin Ruiz MD HEADER OPERATION: Colonoscopy biopsy PRE-OP DIAGNOSIS: Positive colorectal cancer screening using Cologuard test TISSUE SUBMITTED: A- Rectal polyp biopsy MICROSCOPIC DIAGNOSIS A. Rectum, polyp, biopsy: * Hyperplastic polyp. MICROSCOPIC DESCRIPTION Slides are reviewed. GROSS DESCRIPTION A. Received in formalin in a container labeled with the patient's name, date of , and rectal polyp is a 0.4 x 0.3 x 0.2 cm fragment of burrell-pink mucosal tissue. Submitted in toto in A1. [facility] 07-28-2024 [facility]:[id number] Patient Age/Sex Location Account Attending Physician GEMA CARCAMO 64/F EN [id number] Dr. Kelin Ruiz MD Signed (signature on file) Dr. Bebe Rodriguez MD 08/04/24 1535 Normal [facility] Comment on above: Performed By: #### P SUIV #### [facility] [address] [place], [place], [address] Surgery Visit Reporton 06-11 Surgery Visit Report [facility] [address] [place], [place] [address] OFFICE VISIT Date of Service: 06/11/24 MR#: [id number] Acct: [id number] Name: GEMA CARCAMO Rep #: [id number] : 1960 Provider: Dr. Kelin mix MD Age/Sex: 64/F Location: [facility] Status: Signed Intake Vital Signs 03/02/23 10:29 06/11/24 14:43 Height 5 ft 4 in 5 ft 5 in Weight: 158 lb BMI 26.2 BP 120/67 Blood Pressure Location Rt brachial Position Sitting Respiration 17 Pulse 73 Pulse Source Monitor Pulse Oximetry (%) 95 Oxygen Delivery Method room air Intake Visit Reasons: POSITIVE COLOGUARD Chief Complaint: positive cologuard Is patient in pain?: No Allergies cephalexin monohydrate (From Keflex) Allergy (Verified 06/11/24 14:47) Rash doxycycline Allergy (Verified 06/11/24 14:47) Rash minocycline Allergy (Verified 06/11/24 14:47) Hives Penicillins (PCN) Allergy (Verified 06/11/24 14:47) Rash povidone-iodine (From Betadine) Allergy (Verified 06/11/24 14:47) Rash soap (From Betadine) Allergy (Verified 06/11/24 14:47) rash tetracycline Allergy (Verified 06/11/24 14:47) Rash Medications ???Medication ???Instructions ???Recorded ???Confirmed ???Type benzonatate 100 mg capsule 200 mg (2 x 100 mg) PO TID PRN 02/1203/02/23 Rx cough #30 caps sertraline 25 mg tablet 25 mg PO QDAY 06/11/24 06/11/24 Hi story spironolactone 50 mg tablet 50 mg PO QAM 06/11/24 06/11/24 His tory PFS Medical History (Updated 06/11/24 @ 14:42 by Amy Mae) Moderate persistent asthma Asthma Surgical History (Updated 06/11/24 @ 14:43 by Amy Mae) History of appendectomy Family History (Updated 06/11/24 @ 14:43 by Amy Mae) Father Heart disease Hypertension Mother Asthma Social History Smoking Status: Never smoker alcohol intake: current alcohol intake frequency: holidays/special occasions only substance use type: does not use HPI HPI HPI: 64-year-old female presents due to positive Cologuard. Patient never had previous colonoscopy. Patient denies any chronic abdominal pain/nausea/vomiting /reflux. Patient denies any family history of colon cancer. Patient has bowel movements daily denies any blood. Patient states she does have loose stools maybe 4 days out of the week. ROS General General: Yes fatigue; No weight change, appetite, colon cancer or breast cancer HEENT HEENT: Yes eye surgery; No difficulty swallowing, eye injury, swollen glands or hoarseness Endo Endocrine: No thyroid disease, diabetes mellitus, thyroid cancer, Hair loss, heat intolerance or cold intolerance Skin Skin: No rash or changing moles Musc Musculoskeletal: No back problems, arthritis, rheumatoid arthritis, gout or joint pain Cardio Cardiovascular: No murmur, pacemaker, heart disease, atrial fibrillation, high blood pressure, heart attack, heart stent, palpitations, shortness of breat with exertion or chest pain Psych Psychiatric: No depression, anxiety or hearing voices Resp Respiratory: No shortness of breath, No sleep apnea, No cough, No COPD, Yes asthma, No emphysema and No wheezing Gastro Gastrointestinal: No abdominal pain, No nausea or vomiting, Yes diarrhea, No constipation, No blood in stool, No acid reflux, No hemorrhoids, No ulcers, No gallbladder problem and No black,tarry stools Ramin Hematologic: No blood thinners, No blood disorders, No bleeding, No anemia and No blood clots Neuro Neurologic: No numbness and No tingling Exam Const General: cooperative, healthy appearing, comfortable and no acute distress HENMT Head: normocephalic and atraumatic Neck Neck: supple Resp Effort Inspection: normal respiratory effort Cardio Rate: regular rate GI Inspection: non-distended Palpation: soft and nontender Skin General: no rashes or lesions noted Neuro General: CN's II-XI intact bilaterally Extrem General: normal to inspection Psych Mental Status: mental status grossly normal Attitude: cooperative Assessment and Plan Assessment and Plan (1) Positive colorectal cancer screening using Cologuard test: Status: Acute Plan I have discussed the above with the patient. I have offered the patient colonoscopy for evaluation. I have explained the risks/benefits of the procedure and described the procedure. I have discussed the risks with the patient, including but not limited to: infection, bleeding, perforation of the GI tract requiring emergency surgery, inability to complete the procedure, injury to any internal organs, complications of anesthesia, etc. - the patient understands and agrees to proceed. I have answered all the patient's questions to the patient's satisfaction and the patie (more content not included)... Normal [facility] SCRN MAMM (CAD)W/MAYRA BILATo n 02-18-2024 SCRN MAMM (CAD)W/MAYRA BILAT Imaging Services [address] [place] [address] SCRN MAMM (CAD)W/MAYRA BILAT MR#: [id number] Acct: [id number] Name: GEMA CARCAMO Rep #: [id number] : 1960 F 63 From: Alejo demarco MD PCP: Dr. Laverne Falcon MD Status: REG [facility] Study: SCRN MAMM (CAD)W/MAYRA BILAT Date of Exam: 01/22 12/14 Exam# [id number] Ordering Dr: Laverne Falcon MD [id number] MAMMOGRAPHY - BILATERAL SCREENING REASON FOR EXAM: Female, 63 years old. Routine annual screening examination. PERTINENT HISTORY: Non-contributory. TECHNIQUE: Digital bilateral breast mayra (3D mammographic acquisition) in the CC and MLO projections. 2-D mediolateral oblique (MLO) and craniocaudad (CC) views of both breasts were obtained. CAD: Full Field Digital Mammography with Computer Added Detection was performed. COMPARISON: Comparison is made with prior study dated February 16, 2023 and February 15, 2022. FINDINGS: Breast Composition: There are scattered areas of fibroglandular density. There are no dominant masses or suspicious calcifications. Stable small bilateral axillary lymph nodes. No other significant abnormalities are identified. There has been no significant change since the prior study. BI/SCRN MAMM (CAD)W/MAYRA BILAT IMPRESSION: Stable bilateral screening mammogram. Yearly follow-up mammogram recommended. (A) ASSESSMENT CATEGORY: BIRADS Category 2: Benign. A letter regarding these results will be sent to the patient by the facility within 30 days. Approximately 10% of breast cancers are not detected by mammography. A normal mammogram should not delay biopsy of a clinically suspicious abnormality. [id number] Electronically Signed: Alejo Oliver MD at 10:54 EDT , CC: Dr. Laverne Falcon MD Cell Feed Department Supervisor: Signed Normal [facility] Basophil percentageOrdered B y: Dr. Bennett on 07-12-2022 Bilirubin [Mass/Vol] 1.10 mg/dL 0.20-1.00 [facility] Comment on above: For patients on eltr ombopag therapy, use of Dimension [place] TBIL is not recommended. Chloride [Moles/Vol] 107 mmol/L 98-107 [facility] Cholesterol [Mass/Vol] 165 mg/dL <200 [facility] Comment on above: <200 mg/dL Desirable 200-240 mg/dL Borderline >240 mg/dL High Risk Glucose [Mass/Vol] 101 mg/dL 74-106 [facility] Comment on above: Fasting Glucose resu lt from 100 to 125 mg/dL suggests IMPAIRED HOMEOSTASIS per A.D.A. criteria. Potassium [Moles/Vol] 4.6 mmol/L 3.5-5.1 [facility] Protein [Mass/Vol] 7.7 g/dL 6.4-8.2 [facility] Sodium [Moles/Vol] 136 mmol/L 136-145 [facility] Triglyceride [Mass/Vol] 77 mg/dL <199 [facility] Comment on above: The drugs N-Acetylcy steine and Metamizole may falsely depress this assay.Serum Triglycerides Reference Interval Normal <150 mg/dL Borderline high 150 - 199 mg/dL High 200 - 499 mg/dL Very High > or = 500 mg/dL WBC (Bld) [#/Vol] 7.1 10*3/uL 4.4-11.0 [facility] Blood erythrocytes count (nu mber/volume)Ordered By: Dr. Bennett on 07-12-2022 RBC (Bld) [#/Vol] 4.80 10*6/uL 4.2-5.4 [facility] Blood hemoglobin measurement (mass/volume)Ordered By: Dr. Bennett on 07-12-2022 Hemoglobin (Bld) [Mass/Vol] 14.3 g/dL 12.0-15.0 [facility] Blood platelet mean volumeOr dered By: Dr. Bennett on 07-12-2022 Platelet mean volume (Bld) [Entitic vol] 8.6 fL 6.2-12.0 [facility] Determination of erythrocyte mean corpuscular volume (MCV)Ordered By: Dr. Bennett on 07-12-2022 MCV (RBC) [Entitic vol] 90.8 fL 81-99 [facility] Hematocrit Auto (Bld) [Volum e fraction]Ordered By: Dr. Bennett on 07-12-2022 Hematocrit (Bld) [Volume fraction] 43.6 % 37-47 [facility] Laboratory - Chemistry and C hemistry - challengeOrdered By: Dr. Bennett on 07-12-2022 ALP [Catalytic activity/Vol] 49 U/L 45-117 [facility] ALT [Catalytic activity/Vol] 34 U/L 13-56 [facility] CO2 [Moles/Vol] 24.0 mmol/L 21.0-32.0 [facility] Globulin (S) [Mass/Vol] 3.9 g/dL 2.2-4.2 [facility] Urea nitrogen/Creatinine [Mass ratio] 14.5 mg/mg 10-20 [facility] Laboratory - Hematology and Cell countsOrdered By: Dr. Bennett on 07-12-2022 Erythrocyte distribution width (RBC) [Entitic vol] 41.2 fL 35.1-43.9 [facility] Erythrocyte distribution width (RBC) [Ratio] 12.4 % 11.6-14.6 [facility] MCH (RBC) [Entitic mass] 29.8 pg 27.0-32.0 [facility] MCHC Auto (RBC) [Mass/Vol]Or dered By: Dr. Bennett on 07-12-2022 MCHC (RBC) [Mass/Vol] 32.8 g/dL 32-36 [facility] No Panel InformationOrdered By: Dr. Bennett on 07-12-2022 Estimated GFR (MDRD) Amer 82 mL/min >60 [facility] Comment on above: GFR Calc Estimated GFR (MDRD) Non-Af Amer 68 mL/min >60 [facility] Comment on above: Non- GFR Calc Platelets bldOrdered By: Dr. Bennett on 07-12-2022 Platelets (Bld) [#/Vol] 466 10*3/uL 150-450 [facility] Serum or plasma albumin raj urement (mass/volume)Ordered By: Dr. Bennett on 07-12-2022 Albumin [Mass/Vol] 3.8 g/dL 3.2-5.0 [facility] Serum or plasma albumin/glob ulin mass ratioOrdered By: Dr. Bennett on 07-12-2022 Albumin/Globulin [Mass ratio] 1.0 {ratio} 0.9-2.4 [facility] Serum or plasma calcium raj urement (mass/volume)Ordered By: Dr. Bennett on 07-12-2022 Calcium [Mass/Vol] 9.2 mg/dL 8.5-10.1 [facility] Serum or plasma cholesterol in HDL measurement (mass/volume)Ordered By: Dr. Bennett on 07-12-2022 Cholesterol in HDL [Mass/Vol] 66 mg/dL >40 [facility] Comment on above: The drugs N-Acetylcy steine and Metamizole may falsely depress this assay. Reference Range HDL <40 mg/dL Low HDL Cholesterol HDL >or= 60 mg/dL High HDL Cholesterol Serum or plasma cholesterol in VLDL measurement (mass/volume)Ordered By: Dr. Bennett on 07-12-2022 Cholesterol in VLDL [Mass/Vol] 15 mg/dL 5-40 [facility] Serum or plasma creatinine m easurement (mass/volume)Ordered By: Dr. Bennett on 07-12-2022 Creatinine [Mass/Vol] 0.90 mg/dL 0.55-1.02 [facility] Comment on above: The validity of the calculated GFR & GFRAA in patients over 70 years has not been determined. Clinical correlation is essential. Serum or plasma low density lipoprotein (LDL) cholesterol measurement (mass/volume)Ordered By: Dr. Bennett on 07-12-2022 Cholesterol in LDL [Mass/Vol] 84 mg/dL 0-130 [facility] Serum or plasma urea nitroge n measurement (mass/volume)Ordered By: Dr. Bennett on 07-12-2022 Urea nitrogen [Mass/Vol] 13 mg/dL 7-18 [facility] Thin prep Papanicolaou smear with manual screeningOrdered By: Dr. Bennett on 07-12-2022 Thin prep Papanicolaou smear with manual screening 18 U/L 15-37 [facility] Thin prep Papanicolaou smear with manual screening 5 5-15 [facility] [id number] 05-25-2022 SARS-CoV-2 (COVID-19) RNA NOEMÍ+probe Ql (Unsp spec) Negative Normal Negative [facility] ([place]) Comment on above: Performed By: #### C OVD19, FLURSV #### [address] [address] SARS-CoV-2 (COVID-19) RNA NOEMÍ+probe Ql (Unsp spec) Normal [facility] ([place]) Comment on above: Result Comment: Nega tive results do not preclude SARS-CoV-2 infection and should not be used as the sole basis for patient management decisions. Negative results must be combined with clinical observations, patient history, and epidemiological information. There is a risk of false negative values resulting from improperly collected, transported, or handled specimens. There is a risk of false negative values due to the presence of sequence variants in the pathogen targets of the assay, procedural errors, amplification inhibitors in specimens, or inadequate numbers of organisms for amplification. [employer] SARS-CoV-2 Assay is a Real-Time reverse-transcriptase polymerase chain reaction (RT-PCR) based qualitative in vitro diagnostic test intended for the qualitative detection of nucleic acid from the SARS-CoV-2 in nasopharyngeal swab specimens collected from individuals suspected of COVID-19 by their healthcare provider. Testing is limited to laboratories certified under the Clinical Laboratory Improvement Amendments of 1988 (CLIA), 42 U.S.C. ?263a, to perform moderate and high complexity tests. COVID-19 Int Performed By: #### C OVD19, FLURSV #### [address] [address] FLURSVon 05-25-2022 Flu A PCR (AO) Negative Normal Negative [facility] ([place]) Comment on above: Result Comment: Posi tive Results: Positive Flu A/B or RSV for by PCR. Positive test results do not rule out bacterial infection or co-infection with other pathogens. Test results should be interpreted in conjunction with other laboratory and clinical data. Negative Results: Negative for by PCR. Negative test results do not preclude influenza virus or RSV infection and should not be used as the sole basis for diagnosis, treatment, or other management decisions. There is a risk of false negative RSV results when at low concentration and in the presence of co-infection with high concentration of influenza A. Invalid Results: An Invalid result (INV) was obtained. The test was repeated with similar results. REPEAT COLLECTION AND TESTING IS RECOMMENDED. The [employer] Flu A/B & RSV Assay is a real-time polymerase chain reaction (PCR) based qualitative in vitro diagnostic test for the direct detection and differentiation of influenza A virus, influenza B virus, and respiratory syncytial virus (RSV) nucleic acid in nasopharyngeal swab ([employer] WORKER) specimens from patients with signs and symptoms of respiratory infection in conjunction with clinical and laboratory findings. The test is intended for use as an aid in the differential diagnosis of influenza A virus, influenza B virus, and RSV in humans and is not intended to detect influenza C. Performed By: #### C OVD19, FLURSV #### [address] [place], [place] [address] Flu B PCR (AO) Negative Normal Negative [facility] ([place]) Comment on above: Result Comment: Posi tive Results: Positive Flu A/B or RSV for by PCR. Positive test results do not rule out bacterial infection or co-infection with other pathogens. Test results should be interpreted in conjunction with other laboratory and clinical data. Negative Results: Negative for by PCR. Negative test results do not preclude influenza virus or RSV infection and should not be used as the sole basis for diagnosis, treatment, or other management decisions. There is a risk of false negative RSV results when at low concentration and in the presence of co-infection with high concentration of influenza A. Invalid Results: An Invalid result (INV) was obtained. The test was repeated with similar results. REPEAT COLLECTION AND TESTING IS RECOMMENDED. The [employer] Flu A/B & RSV Assay is a real-time polymerase chain reaction (PCR) based qualitative in vitro diagnostic test for the direct detection and differentiation of influenza A virus, influenza B virus, and respiratory syncytial virus (RSV) nucleic acid in nasopharyngeal swab (STATION WORKER) specimens from patients with signs and symptoms of respiratory infection in conjunction with clinical and laboratory findings. The test is intended for use as an aid in the differential diagnosis of influenza A virus, influenza B virus, and RSV in humans and is not intended to detect influenza C. Performed By: #### C OVD19, FLURSV #### [address] [place], [place] [address] RSV PCR (AO) Negative Normal Negative [facility] ([place]) Comment on above: Result Comment: Posi tive Results: Positive Flu A/B or RSV for by PCR. Positive test results do not rule out bacterial infection or co-infection with other pathogens. Test results should be interpreted in conjunction with other laboratory and clinical data. Negative Results: Negative for by PCR. Negative test results do not preclude influenza virus or RSV infection and should not be used as the sole basis for diagnosis, treatment, or other management decisions. There is a risk of false negative RSV results when at low concentration and in the presence of co-infection with high concentration of influenza A. Invalid Results: An Invalid result (INV) was obtained. The test was repeated with similar results. REPEAT COLLECTION AND TESTING IS RECOMMENDED. The [employer] Flu A/B & RSV Assay is a real-time polymerase chain reaction (PCR) based qualitative in vitro diagnostic test for the direct detection and differentiation of influenza A virus, influenza B virus, and respiratory syncytial virus (RSV) nucleic acid in nasopharyngeal swab ([employer]ATION WORKER) specimens from patients with signs and symptoms of respiratory infection in conjunction with clinical and laboratory findings. The test is intended for use as an aid in the differential diagnosis of influenza A virus, influenza B virus, and RSV in humans and is not intended to detect influenza C. Performed By: #### C OVD19, FLURSV #### [place] [address] [address] CNTHERAPYon 06-25-2019 CNTHERAPY OT/PT/Speech Visit (PTWS) GEMA CARCAMO ([id number]) 1960 F Date Time Provider Department 06/25/19 1:00 PM LOREN LUNA (PT) PTWS Date Time Provider Department Center 06/25/2019 1:00 PM [id number], SEAN (PT)PTWS [facility] Reason for Visit: PT Discharge [752] Primary Visit Diagnosis:Acute pain of right shoulder [M25.511] Allergies As of Date: 06/25/2019 Noted Allergy Reaction BETADINE (POVIDONE-IODINE) 07/05/2018 2 - Rash KEFLEX (CEPHALEXIN) 07/05/2018 2 - Rash PENICILLIN 07/05/2018 4 - Hives TETRACYCLINE 07/05/2018 2 - Rash Comments: All cyclines Date Reviewed: 07/05/2018 Reviewed by: Elida Frederick Ma - Fully Assessed Prescriptions as of 06/25/2019 Sig: FINACEA 15 % TOPICAL FOAM SYMBICORT 160 MCG-4.5 MCG/ACT* 2 PUFF INHALATION TWICE A DAY SERTRALINE 50 MG TABLET SPIRONOLACTONE 50 MG TABLET Progress Notes: Loren Jeremy, PT 06/25/2019 1:39 PM Signed Episode Visit Count: 5 Therapist That Will Oversee The Plan Of Care: Loren Luna Start of Care Date: 05/29/19 Onset Date: 03/28/19 REHABILITATION AND SPORTS THERAPY PHYSICAL THERAPY DISCONTINUANCE OF CARE PLAN OF CARE UPDATE: Assessment: Gema Carcamo is discontinued from Physical Therapy services due to goal achievement. and maximal benefit.. Patient was seen for 5 visits from Start of Care Date: 05/29/19 to 06/25/2019 and treatment included: Therapeutic exercise, Manual therapy and Self-long-term management. Patient has no pain, and shown significant improvements in shoulder strength and range of motion since beginning therapy. She will still benefit from continued strengthening with HEP, but no longer requires skilled care to continue these improvements. Goals for Episode of Care: created on 05/29/19 through 07/28/19 [place] in home exercise program. Met Patient will decrease pain rating by 2 points to meet minimal clinical important difference for numeric pain rating scale. Met Patient will increase active ROM of right shoulder to 160 degrees flexion and abduction to allow pt to improved performance of ADLs. Met Patient will increase strength of right shoulder to 5/5 to allow for return to prior functional status. Partially met Perform work tasks, reaching, and lifting with decreased report of symptoms/pain in 4-6 weeks. Met Perform self care tasks without pain. Met SUBJECTIVE: Patient Reason for Visit: Pt notes some slight pain with overhead reaching with her spring cleaning washing marie, windows, etc. She can also get occasional popping sensation with reaching far behind her, but denies pain with this. Overall much improved, no pain currently as she comes in today. Has been compliant with HEP. Pain: Pain Pain Level: 0 Pain Location: Shoulder - Right Frequency: Intermittent PROMIS Scales Higher is Better 05/29/2019 Phys Func - Score 46 (within normal limits) Phys Func - Percentile 34 % Social Roles - Score 48 (within normal limits) Social Role - Percentile 42 % GH Physical - Score 47.7 GH Physical - Percentile 41 % GH Mental - Score 56 GH Mental - Percentile 73 % T-scores: mean of general population = 50. 5 points is clinically meaningfully difference Percentiles provide an indication of how the patient's score ranks in relation to the general population. Higher percentile rankings indicate better function/quality of life. 50th percentile is the average of the general population and indicates half of respondents had a worse score. Lower is Better 05/29/2019 Fatigue - Score 42 (within normal limits) Fatigue - Percentile 79 % T-scores: mean of general population = 50. 5 points is clinically meaningfully difference Percentiles provide an indication of how the patient's score ranks in relation to the general population. Higher percentile rankings indicate better function/quality of life. 50th percentile is the average of the general population and indicates half of respondents had a worse score. OBJECTIVE MEASURES WITH LEVEL OF FUNCTION: UE AROM R Shoulder Flex: 160 Degrees R Shoulder ABduction: 165 Degrees R Shoulder Internal Rotation (Functional): T9 R Shoulder External Rotation (Functional): T4 UE and Cervical Strength R Shoulder Flexion: 5/5 R Shoulder Abduction (C5): 5/5 R Shoulder Internal Rotation: 5/5 R Shoulder External Rotation: 4+/5 R Shoulder Horizontal ABduction: 4+/5 TREATMENT: Therapeutic Exercise: 1: UBE x 5 min 2: *Final HEP below: 3: Full can 2# 2x10 4: Side lying ER 3# 2x10 5: Y Tband ER 2x10 each 6: G Tband IR 2x10 7: Serratus wall slides 2x10- single arm today 8: Prone T's 2x10 BW 9: Self STM to R supraspinatus and infraspinatus with lacrosse ball Skilled Intervention: Patient was educated in proper exercise technique and purpose for exercises. Skilled judgment was provided in selection of appropriate interventions. Provided written instruction for home exercise program to facilitate proper performance and compliance. Correct performance of therapeutic exercises was facilitated with verbal, visual and tactile cuing. Billing: [facility]: Therapeutic Exercise ([id number]): 1:1 time: 25 minutes (2 units: 23-37 mins) Total time: 25 minutes [facility] PRO[facility]ESSon 06-25-2019 PROGRESS HNO ID: [id number] Author: Loren (Pt) Jeremy Service: ? Author Type: Physical Therapist Type: Progress Notes Filed: 06/25/2019 1:39 PM Note Text: Episode Visit Count: 5 Therapist That Will Oversee The Plan Of Care: Loren Luna Start of Care Date: 05/29/19 Onset Date: 03/28/19 REHABILITATION AND SPORTS THERAPY PHYSICAL THERAPY DISCONTINUANCE OF CARE PLAN OF CARE UPDATE: Assessment: Gema Carcamo is discontinued from Physical Therapy services due to goal achievement. and maximal benefit.. Patient was seen for 5 visits from Start of Care Date: 05/29/19 to 06/25/2019 and treatment included: Therapeutic exercise, Manual therapy and Self-long-term management. Patient has no pain, and shown significant improvements in shoulder strength and range of motion since beginning therapy. She will still benefit from continued strengthening with HEP, but no longer requires skilled care to continue these improvements. Goals for Episode of Care: created on 05/29/19 through 07/28/19 [place] in home exercise program. Met Patient will decrease pain rating by 2 points to meet minimal clinical important difference for numeric pain rating scale. Met Patient will increase active ROM of right shoulder to 160 degrees flexion and abduction to allow pt to improved performance of ADLs. Met Patient will increase strength of right shoulder to 5/5 to allow for return to prior functional status. Partially met Perform work tasks, reaching, and lifting with decreased report of symptoms/pain in 4-6 weeks. Met Perform self care tasks without pain. Met SUBJECTIVE: Patient Reason for Visit: Pt notes some slight pain with overhead reaching with her spring cleaning washing marie, windows, etc. She can also get occasional popping sensation with reaching far behind her, but denies pain with this. Overall much improved, no pain currently as she comes in today. Has been compliant with HEP. Pain: Pain Pain Level: 0 Pain Location: Shoulder - Right Frequency: Intermittent PROMIS Scales Higher is Better 05/29/2019 Phys Func - Score 46 (within normal limits) Phys Func - Percentile 34 % Social Roles - Score 48 (within normal limits) Social Role - Percentile 42 % GH Physical - Score 47.7 GH Physical - Percentile 41 % GH Mental - Score 56 GH Mental - Percentile 73 % T-scores: mean of general population = 50. 5 points is clinically meaningfully difference Percentiles provide an indication of how the patient's score ranks in relation to the general population. Higher percentile rankings indicate better function/quality of life. 50th percentile is the average of the general population and indicates half of respondents had a worse score. Lower is Better 05/29/2019 Fatigue - Score 42 (within normal limits) Fatigue - Percentile 79 % T-scores: mean of general population = 50. 5 points is clinically meaningfully difference Percentiles provide an indication of how the patient's score ranks in relation to the general population. Higher percentile rankings indicate better function/quality of life. 50th percentile is the average of the general population and indicates half of respondents had a worse score. OBJECTIVE MEASURES WITH LEVEL OF FUNCTION: UE AROM R Shoulder Flex: 160 Degrees R Shoulder ABduction: 165 Degrees R Shoulder Internal Rotation (Functional): T9 R Shoulder External Rotation (Functional): T4 UE and Cervical Strength R Shoulder Flexion: 5/5 R Shoulder Abduction (C5): 5/5 R Shoulder Internal Rotation: 5/5 R Shoulder External Rotation: 4+/5 R Shoulder Horizontal ABduction: 4+/5 TREATMENT: Therapeutic Exercise: 1: UBE x 5 min 2: *Final HEP below: 3: Full can 2# 2x10 4: Side lying ER 3# 2x10 5: Y Tband ER 2x10 each 6: G Tband IR 2x10 7: Serratus wall slides 2x10- single arm today 8: Prone T's 2x10 BW 9: Self STM to R supraspinatus and infraspinatus with lacrosse ball Skilled Intervention: Patient was educated in proper exercise technique and purpose for exercises. Skilled judgment was provided in selection of appropriate interventions. Provided written instruction for home exercise program to facilitate proper performance and compliance. Correct performance of therapeutic exercises was facilitated with verbal, visual and tactile cuing. Billing: [facility]: Therapeutic Exercise ([id number]): 1:1 time: 25 minutes (2 units: 23-37 mins) Total time: 25 minutes TORRIE Cat [facility] PROGRESSon 06-19-2019 PROGRESS HNO ID: [id number] Author: Loren (Pt) Jeremy Service: ? Author Type: Physical Therapist Type: Progress Notes Filed: 06/19/2019 11:23 AM Note Text: Episode Visit Count: 4 Therapist That Will Oversee The Plan Of Care: Loren Luna Start of Care Date: 05/29/19 Onset Date: 03/28/19 REHABILITATION AND SPORTS THERAPY PHYSICAL THERAPY TREATMENT NOTE ASSESSMENT: Gema Carcamo demonstrated improvements in shoulder strength, decreased pain, and improved tolerance to exercises including introducing plyometrics today. The patient will continue to benefit from ongoing skilled physical therapy for progress report to gauge progress towards therapy goals. PLAN FOR NEXT VISIT: progress report to gauge progress towards therapy goals. SUBJECTIVE: Patient Reason for Visit: Pt comes in for the first time today with no pain. She has a question about form of 2 of her home exercises. Pain: Pain Pain Level: 0 Pain Location: Shoulder - Right Description: Sore Frequency: Intermittent OBJECTIVE MEASURES WITH LEVEL OF FUNCTION: Patient easily fatigues with plyo exercises today TREATMENT: Therapeutic Exercise: 1: UBE x 5 min 2: Full can 2# 2x10 3: Side lying ER 3# 2x10 4: Y Tband ER 2x10 each 5: G Tband IR 2x10 6: Serratus wall slides 2x10- single arm today 7: Prone T's 2x10 BW 8: Serratus wall slides 2x10- single arm today 9: Wall ball plyo dribbles at full elevation, 135 and 90 degrees, x30 sec each position Skilled Intervention: Patient was educated in proper exercise technique and purpose for exercises. Skilled judgment was provided in selection of appropriate interventions. Correct performance of therapeutic exercises was facilitated with verbal, visual and tactile cuing. Billing: [facility]: Therapeutic Exercise ([id number]): 1:1 time: 40 minutes (3 units: 38-52 mins) Total time: 40 minutes Loren Luna PT Normal [facility] CNTHERAPYon 06-18-2019 CNTHERAPY OT/PT/Speech Visit (PTWS) GEMA CARCAMO ([id number]) 1960 F Date Time Provider Department 06/18/19 1:00 PM LOREN LUNA (PT) PTWS Date Time Provider Department Center 06/18/2019 1:00 PM [id number], SEAN (PT)PTWS [facility] Reason for Visit: Physical Therapy [503] Primary Visit Diagnosis:Acute pain of right shoulder [M25.511] Allergies As of Date: 06/18/2019 Noted Allergy Reaction BETADINE (POVIDONE-IODINE) 07/05/2018 2 - Rash KEFLEX (CEPHALEXIN) 07/05/2018 2 - Rash PENICILLIN 07/05/2018 4 - Hives TETRACYCLINE 07/05/2018 2 - Rash Comments: All cyclines Date Reviewed: 07/05/2018 Reviewed by: Elida Frederick Ma - Fully Assessed Prescriptions as of 06/18/2019 Sig: FINACEA 15 % TOPICAL FOAM SYMBICORT 160 MCG-4.5 MCG/ACT* 2 PUFF INHALATION TWICE A DAY SERTRALINE 50 MG TABLET SPIRONOLACTONE 50 MG TABLET Progress Notes: Loren Luna PT 06/19/2019 11:23 AM Signed Episode Visit Count: 4 Therapist That Will Oversee The Plan Of Care: Loren Luna Start of Care Date: 05/29/19 Onset Date: 03/28/19 REHABILITATION AND SPORTS THERAPY PHYSICAL THERAPY TREATMENT NOTE ASSESSMENT: Gema Carcamo demonstrated improvements in shoulder strength, decreased pain, and improved tolerance to exercises including introducing plyometrics today. The patient will continue to benefit from ongoing skilled physical therapy for progress report to gauge progress towards therapy goals. PLAN FOR NEXT VISIT: progress report to gauge progress towards therapy goals. SUBJECTIVE: Patient Reason for Visit: Pt comes in for the first time today with no pain. She has a question about form of 2 of her home exercises. Pain: Pain Pain Level: 0 Pain Location: Shoulder - Right Description: Sore Frequency: Intermittent OBJECTIVE MEASURES WITH LEVEL OF FUNCTION: Patient easily fatigues with plyo exercises today TREATMENT: Therapeutic Exercise: 1: UBE x 5 min 2: Full can 2# 2x10 3: Side lying ER 3# 2x10 4: Y Tband ER 2x10 each 5: G Tband IR 2x10 6: Serratus wall slides 2x10- single arm today 7: Prone T's 2x10 BW 8: Serratus wall slides 2x10- single arm today 9: Wall ball plyo dribbles at full elevation, 135 and 90 degrees, x30 sec each position Skilled Intervention: Patient was educated in proper exercise technique and purpose for exercises. Skilled judgment was provided in selection of appropriate interventions. Correct performance of therapeutic exercises was facilitated with verbal, visual and tactile cuing. Billing: [facility]: Therapeutic Exercise ([id number]): 1:1 time: 40 minutes (3 units: 38-52 mins) Total time: 40 minutes Loren Luna PT Normal [facility] CNTHERAPYon 06-12-2019 CNTHERAPY OT/PT/Speech Visit (PTWS) GEMA CARCAMO ([id number]) 1960 F Date Time Provider Department 06/12/19 3:00 PM LOREN LUNA (PT) PTWS Date Time Provider Department Center 06/12/2019 3:00 PM [id number], SEAN (PT)PTWS [facility] [place] Reason for Visit: Physical Therapy [503] Primary Visit Diagnosis:Acute pain of right shoulder [M25.511] Allergies As of Date: 06/12/2019 Noted Allergy Reaction BETADINE (POVIDONE-IODINE) 07/05/2018 2 - Rash KEFLEX (CEPHALEXIN) 07/05/2018 2 - Rash PENICILLIN 07/05/2018 4 - Hives TETRACYCLINE 07/05/2018 2 - Rash Comments: All cyclines Date Reviewed: 07/05/2018 Reviewed by: Elida Frederick Ma - Fully Assessed Prescriptions as of 06/12/2019 Sig: FINACEA 15 % TOPICAL FOAM SYMBICORT 160 MCG-4.5 MCG/ACT* 2 PUFF INHALATION TWICE A DAY SERTRALINE 50 MG TABLET SPIRONOLACTONE 50 MG TABLET Progress Notes: Loren Luna, PT 06/12/2019 4:08 PM Signed Episode Visit Count: 3 Therapist That Will Oversee The Plan Of Care: Loren Luna Start of Care Date: 05/29/19 Onset Date: 03/28/19 REHABILITATION AND SPORTS THERAPY PHYSICAL THERAPY TREATMENT NOTE ASSESSMENT: Gema Carcamo demonstrated improvements in shoulder strength and tolerance for strengthening exercises. The patient will continue to benefit from ongoing skilled physical therapy for progressive rotator cuff and periscapular strengthening to decrease pain and improve activity tolerance. PLAN FOR NEXT VISIT: May try hoist rows or prone rows. SUBJECTIVE: Patient Reason for Visit: Shoulder continues to feel better, but she feels an ocassional popping sensation that worries her. Pain: Pain Pain Level: 1 Pain Location: Shoulder - Right Description: Sore Frequency: Intermittent OBJECTIVE MEASURES WITH LEVEL OF FUNCTION: Elbow extension compensation for Band resisted ER TREATMENT: Therapeutic Exercise: 1: Shoulder pulleys into scaption x 20 2: UBE x 5 min 3: Full can 2# 2x10 4: Side lying ER 2# 2x10 5: Y Tband IR/ER 2x10 each 6: *Prone T's 2x10 BW 7: Prone Y's- x10- ceased due to popping sensation 8: *Serratus wall slides 2x10- single arm today Skilled Intervention: Patient was educated in proper exercise technique and purpose for exercises. Skilled judgment was provided in selection of appropriate interventions. Provided written instruction for home exercise program to facilitate proper performance and compliance. Correct performance of therapeutic exercises was facilitated with verbal, visual and tactile cuing. Billing: [facility]: Therapeutic Exercise ([id number]): 1:1 time: 40 minutes (3 units: 38-52 mins) Total time: 40 minutes Loren Luna, PT Normal [facility] PROGRESSon 06-12-2019 PROGRESS HNO ID: [id number] Author: Loren Luna Service: ? Author Type: Physical Therapist Type: Progress Notes Filed: 06/12/2019 4:08 PM Note Text: Episode Visit Count: 3 Therapist That Will Oversee The Plan Of Care: Loren Luna Start of Care Date: 05/29/19 Onset Date: 03/28/19 REHABILITATION AND SPORTS THERAPY PHYSICAL THERAPY TREATMENT NOTE ASSESSMENT: Gema Carcamo demonstrated improvements in shoulder strength and tolerance for strengthening exercises. The patient will continue to benefit from ongoing skilled physical therapy for progressive rotator cuff and periscapular strengthening to decrease pain and improve activity tolerance. PLAN FOR NEXT VISIT: May try hoist rows or prone rows. SUBJECTIVE: Patient Reason for Visit: Shoulder continues to feel better, but she feels an ocassional popping sensation that worries her. Pain: Pain Pain Level: 1 Pain Location: Shoulder - Right Description: Sore Frequency: Intermittent OBJECTIVE MEASURES WITH LEVEL OF FUNCTION: Elbow extension compensation for Band resisted ER TREATMENT: Therapeutic Exercise: 1: Shoulder pulleys into scaption x 20 2: UBE x 5 min 3: Full can 2# 2x10 4: Side lying ER 2# 2x10 5: Y Tband IR/ER 2x10 each 6: *Prone T's 2x10 BW 7: Prone Y's- x10- ceased due to popping sensation 8: *Serratus wall slides 2x10- single arm today Skilled Intervention: Patient was educated in proper exercise technique and purpose for exercises. Skilled judgment was provided in selection of appropriate interventions. Provided written instruction for home exercise program to facilitate proper performance and compliance. Correct performance of therapeutic exercises was facilitated with verbal, visual and tactile cuing. Billing: [facility]: Therapeutic Exercise ([id number]): 1:1 time: 40 minutes (3 units: 38-52 mins) Total time: 40 minutes Loren Luna PT Normal [facility] CNTHERAPYon 06-03-2019 CNTHERAPY OT/PT/Speech Visit (PTWS) GEMA CARCAMO ([id number]) 1960 F Date Time Provider Department 06/03/19 11:30 AM LOREN LUNA (PT) PTWS Date Time Provider Department Center 06/03/2019 11:30 AM [id number], SEAN (PT)PTWS [facility] [place] Reason for Visit: Physical Therapy [503] Primary Visit Diagnosis:Acute pain of right shoulder [M25.511] Allergies As of Date: 06/03/2019 Noted Allergy Reaction BETADINE (POVIDONE-IODINE) 07/05/2018 2 - Rash KEFLEX (CEPHALEXIN) 07/05/2018 2 - Rash PENICILLIN 07/05/2018 4 - Hives TETRACYCLINE 07/05/2018 2 - Rash Comments: All cyclines Date Reviewed: 07/05/2018 Reviewed by: Elida Frederick Ma - Fully Assessed Prescriptions as of 06/03/2019 Sig: FINACEA 15 % TOPICAL FOAM SYMBICORT 160 MCG-4.5 MCG/ACT* 2 PUFF INHALATION TWICE A DAY SERTRALINE 50 MG TABLET SPIRONOLACTONE 50 MG TABLET Progress Notes: Loren Luna PT 06/03/2019 12:26 PM Signed Episode Visit Count: 2 Therapist That Will Oversee The Plan Of Care: Loren Luna Start of Care Date: 05/29/19 Onset Date: 03/28/19 REHABILITATION AND SPORTS THERAPY PHYSICAL THERAPY TREATMENT NOTE ASSESSMENT: Gema Carcamo demonstrated improvements in shoulder pain and AROM, able to progress strengthening exercises well today. The patient will continue to benefit from ongoing skilled physical therapy for continued mobility, strengthening, and scapulohumeral rhythm improvements to decrease pain and return to prior level of function. PLAN FOR NEXT VISIT: continue shoulder strengthening exercises SUBJECTIVE: Patient Reason for Visit: Pt feels the shoulder is getting better. But still feeling sore in the shoulder itself and down the arm at times Pain: Pain Pain Level: 1 Pain Location: Shoulder - Right Description: Sore Frequency: Continuous OBJECTIVE MEASURES WITH LEVEL OF FUNCTION: Painful arc gone, only minimal pain at end range today with flexion and abduction TREATMENT: Therapeutic Exercise: 1: Shoulder pulleys into scaption x 20 2: UBE x 5 min 3: *Full can BW 2x10 4: *Side lying ER BW 2x10 5: *Y Tband IR/ER 2x10 each 6: Discussed work station set up and adjustments to make to decrease stress on shoulder Skilled Intervention: Patient was educated in proper exercise technique and purpose for exercises. Skilled judgment was provided in selection of appropriate interventions. Provided written instruction for home exercise program to facilitate proper performance and compliance. Correct performance of therapeutic exercises was facilitated with verbal, visual and tactile cuing. Manual Therapy: 1: STM to R infraspinatus and supraspinatus with push to tolerance until symptoms subside- discussed use of lacrosse ball for HEP Skilled Intervention: Manual skills to improve joint mobility, ROM, and decrease pain. Utilized anatomy knowledge of the therapist, and assessment of patient's response to intervention. Billing: [facility]: Therapeutic Exercise ([id number]): 1:1 time: 33 minutes (2 units: 23-37 mins) Manual Therapy ([id number]): 1:1 time: 8 minutes (1 unit: 8-22 mins) Total time: 41 minutes Loren Luna PT Normal [facility] PROGRESSon 06-03-2019 PROGRESS HNO ID: [id number] Author: Loren Luna Service: ? Author Type: Physical Therapist Type: Progress Notes Filed: 06/03/2019 12:26 PM Note Text: Episode Visit Count: 2 Therapist That Will Oversee The Plan Of Care: Loren Luna Start of Care Date: 05/29/19 Onset Date: 03/28/19 REHABILITATION AND SPORTS THERAPY PHYSICAL THERAPY TREATMENT NOTE ASSESSMENT: Gema Carcamo demonstrated improvements in shoulder pain and AROM, able to progress strengthening exercises well today. The patient will continue to benefit from ongoing skilled physical therapy for continued mobility, strengthening, and scapulohumeral rhythm improvements to decrease pain and return to prior level of function. PLAN FOR NEXT VISIT: continue shoulder strengthening exercises SUBJECTIVE: Patient Reason for Visit: Pt feels the shoulder is getting better. But still feeling sore in the shoulder itself and down the arm at times Pain: Pain Pain Level: 1 Pain Location: Shoulder - Right Description: Sore Frequency: Continuous OBJECTIVE MEASURES WITH LEVEL OF FUNCTION: Painful arc gone, only minimal pain at end range today with flexion and abduction TREATMENT: Therapeutic Exercise: 1: Shoulder pulleys into scaption x 20 2: UBE x 5 min 3: *Full can BW 2x10 4: *Side lying ER BW 2x10 5: *Y Tband IR/ER 2x10 each 6: Discussed work station set up and adjustments to make to decrease stress on shoulder Skilled Intervention: Patient was educated in proper exercise technique and purpose for exercises. Skilled judgment was provided in selection of appropriate interventions. Provided written instruction for home exercise program to facilitate proper performance and compliance. Correct performance of therapeutic exercises was facilitated with verbal, visual and tactile cuing. Manual Therapy: 1: STM to R infraspinatus and supraspinatus with push to tolerance until symptoms subside- discussed use of lacrosse ball for HEP Skilled Intervention: Manual skills to improve joint mobility, ROM, and decrease pain. Utilized anatomy knowledge of the therapist, and assessment of patient's response to intervention. Billing: [facility]: Therapeutic Exercise ([id number]): 1:1 time: 33 minutes (2 units: 23-37 mins) Manual Therapy ([id number]): 1:1 time: 8 minutes (1 unit: 8-22 mins) Total time: 41 minutes TORRIE Cat [facility] CNTHERAPYon 05-29-2019 CNTHERAPY OT/PT/Speech Visit (PTWS) GEMA CARCAMO ([id number]) 1960 F Date Time Provider Department 05/29/19 11:30 AM LOREN LUNA (PT) PTWS Date Time Provider Department Center 05/29/2019 11:30 AM [id number], SEAN (PT)PTWS [facility] [place] Reason for Visit: PT Eval [747] Primary Visit Diagnosis:Acute pain of right shoulder [M25.511] Allergies As of Date: 05/29/2019 Noted Allergy Reaction BETADINE (POVIDONE-IODINE) 07/05/2018 2 - Rash KEFLEX (CEPHALEXIN) 07/05/2018 2 - Rash PENICILLIN 07/05/2018 4 - Hives TETRACYCLINE 07/05/2018 2 - Rash Comments: All cyclines Date Reviewed: 07/05/2018 Reviewed by: Elida Frederick Ma - Fully Assessed Prescriptions as of 05/29/2019 Sig: FINACEA 15 % TOPICAL FOAM SYMBICORT 160 MCG-4.5 MCG/ACT* 2 PUFF INHALATION TWICE A DAY SERTRALINE 50 MG TABLET SPIRONOLACTONE 50 MG TABLET Progress Notes: Loren Luna, PT 05/29/2019 1:18 PM Signed Episode Visit Count: 1 Therapist That Will Oversee The Plan Of Care: Loren Luna Start of Care Date: 05/29/19 Onset Date: 03/28/19 Patient Identified by Name and Date of : Yes REHABILITATION AND SPORTS THERAPY PHYSICAL THERAPY EVALUATION PLAN OF CARE: Assessment: Gema Carcamo presents with the diagnosis of right shoulder tendonitis and burisitis. She presents with impairments of limited shoulder range of motion, strength, and functional use of the arm, while displaying s/s consistent with impingement syndrome. She may benefit from skilled therapy services to improve the above noted deficits to decrease pain and improve activity level to return to prior level of function. Prognosis: Fair Fair due to: clinical presentation;limited tolerance to activity;occupationa l demands Goals for Episode of Care: created on 05/29/19 through 07/28/19 Lar[place] in home exercise program. Patient will decrease pain rating by 2 points to meet minimal clinical important difference for numeric pain rating scale. Patient will increase active ROM of right shoulder to 160 degrees flexion and abduction to allow pt to improved performance of ADLs. Patient will increase strength of right shoulder to 5/5 to allow for return to prior functional status. Perform work tasks, reaching, and lifting with decreased report of symptoms/pain in 4-6 weeks. Perform self care tasks without pain. Planned Interventions, Frequency, and Duration: Current Frequency: 2x/week Duration: 8 weeks Total Number of Visits Planned: 12 Planned Treatment Interventions: Therapeutic exercise;Manual therapy;Self-long-term management;Patient/F amily/Caregiver Education;Neuromuscu lar re-education PLAN FOR NEXT VISIT: Assess carry over of HEP, discuss work station set up for better ergonomics, progress to isotonics if tolerated Patient demonstrates good understanding of plan of care and treatment. The above goals and plan of care were discussed and agreed upon by patient/family. SUBJECTIVE: Gema Carcamo is a 59 year old female seen today for right shoulder pain for a few weeks. 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 Insidious onset. pain mainly stays in the shoulder itself with some referral to mid brachium Pain: Pain Pain Level: 2(Gets up to an 8-9/10) Pain Location: Shoulder - Right Description: Aching Frequency: Continuous Post Treatment Pain Post Treatment Pain Level: No Change PROMIS Scales Higher is Better 05/29/2019 Phys Func - Score 46 (within normal limits) Phys Func - Percentile 34 % Social Roles - Score 48 (within normal limits) Social Role - Percentile 42 % GH Physical - Score 47.7 GH Physical - Percentile 41 % GH Mental - Score 56 GH Mental - Percentile 73 % T-scores: mean of general population = 50. 5 points is clinically meaningfully difference Percentiles provide an indication of how the patient's score ranks in relation to the general population. Higher percentile rankings indicate better function/quality of life. 50th percentile is the average of the general population and indicates half of respondents had a worse score. Lower is Better 05/29/2019 Fatigue - Score 42 (within normal limits) Fatigue - Percentile 79 % T-scores: mean of general population = 50. 5 points is clinically meaningfully difference Percentiles provide an indication of how the patient's score ranks in relation to the general population. Higher percentile rankings indicate better function/quality of life. 50th percentile is the average of the general population and indicates half of respondents had a worse score. OBJECTIVE MEASURES WITH LEVEL OF FUNCTION: UE AROM R Shoulder Flex: 103 Degrees R Shoulder ABduction: 120 Degrees R Shoulder Internal Rotation (Functional): T12 R Shoulder External Rotation (Functional): Occiput L Shoulder Flex: 165 Degrees L Shoulder ABduction: 170 Degrees L Shoulder Internal Rotation (Functional): T6 L Shoulder External Rotation (Functional): T4 UE and Cervical Strength Strength Tested: Shoulder All R Shoulder Flexion: 4/5 R Shoulder Abduction (C5): 4/5 R Shoulder Internal Rotation: 5/5 R Shoulder External Rotation: 4/5 R Shoulder Horizontal ABduction: 4-/5 L Shoulder Flexion: 5/5 L Shoulder Abduction (C5): 5/5 L Shoulder Internal Rotation: 5/5 L Shoulder External Rotation: 4+/5 L Shoulder Horizontal ABduction: 4+/5 Special Tests - Shoulder Shoulder Special Tests: Empty Can;Cuellar-Saleem; Neer Empty Can: Right Negative(painful but good effort) Cuellar-Saleem: Right Positive Neer: Right Positive Education: Education Learning Preferences: Demonstration;Explan ation;Performance;Pr inted Materials Barriers: None Learning/educational needs: Home exercise program;Plan of Care Education Provided: Yes, see treatment interventions for education provided Education Provided To: Patient Education Mode/Type: Demonstration;Explan ation/Discussion;Lit erature/Printed Materials;Performanc e Response to Education/Teach Back: States/Identifies;Re turn Demonstration TREATMENT: Evaluation Therapeutic Exercise: 1: Long discussion with shoulder models explaining mechanics behind shoulder impingement, bursitis, and tendonitis. Also discussed body mechanics, avoiding painful activities currently, and need for work station evaluation 2: *Shoulder pulleys 3x20 3: *Shoulder pendulums 3x20 4: *R flexion isometrics 3x10 5 sec holds 5: *R ER isometric holds 3x10 5 sec holds Skilled Intervention: Patient was educated in proper exercise technique and purpose for exercises. Skilled judgment was provided in selection of appropriate interventions. Provided written instruction for home exercise program to facilitate proper performance and compliance. Correct performance of therapeutic exercises was facilitated with verbal, visual and tactile cuing. Billing: [facility]: Evaluation - Low Complexity ([id number]) Therapeutic Exercise ([id number]): 1:1 time: 28 minutes (2 units: 23-37 mins) Total time: 50 minutes Loren Luna PT Normal [facility] PROGRESSon 05-29-2019 PROGRESS HNO ID: [id number] Author: Loren Luna Service: ? Author Type: Physical Therapist Type: Progress Notes Filed: 05/29/2019 1:18 PM Note Text: Episode Visit Count: 1 Therapist That Will Oversee The Plan Of Care: Loren Luna Start of Care Date: 05/29/19 Onset Date: 03/28/19 Patient Identified by Name and Date of : Yes REHABILITATION AND SPORTS THERAPY PHYSICAL THERAPY EVALUATION PLAN OF CARE: Assessment: Gema Carcamo presents with the diagnosis of right shoulder tendonitis and burisitis. She presents with impairments of limited shoulder range of motion, strength, and functional use of the arm, while displaying s/s consistent with impingement syndrome. She may benefit from skilled therapy services to improve the above noted deficits to decrease pain and improve activity level to return to prior level of function. Prognosis: Fair Fair due to: clinical presentation;limited tolerance to activity;occupationa l demands Goals for Episode of Care: created on 05/29/19 through 07/28/19 Larue in home exercise program. Patient will decrease pain rating by 2 points to meet minimal clinical important difference for numeric pain rating scale. Patient will increase active ROM of right shoulder to 160 degrees flexion and abduction to allow pt to improved performance of ADLs. Patient will increase strength of right shoulder to 5/5 to allow for return to prior functional status. Perform work tasks, reaching, and lifting with decreased report of symptoms/pain in 4-6 weeks. Perform self care tasks without pain. Planned Interventions, Frequency, and Duration: Current Frequency: 2x/week Duration: 8 weeks Total Number of Visits Planned: 12 Planned Treatment Interventions: Therapeutic exercise;Manual therapy;Self-long-term management;Patient/F amily/Caregiver Education;Neuromuscu lar re-education PLAN FOR NEXT VISIT: Assess carry over of HEP, discuss work station set up for better ergonomics, progress to isotonics if tolerated Patient demonstrates good understanding of plan of care and treatment. The above goals and plan of care were discussed and agreed upon by patient/family. SUBJECTIVE: Gema Carcamo is a 59 year old female seen today for right shoulder pain for a few weeks. 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 Insidious onset. pain mainly stays in the shoulder itself with some referral to mid brachium Pain: Pain Pain Level: 2(Gets up to an 8-9/10) Pain Location: Shoulder - Right Description: Aching Frequency: Continuous Post Treatment Pain Post Treatment Pain Level: No Change PROMIS Scales Higher is Better 05/29/2019 Phys Func - Score 46 (within normal limits) Phys Func - Percentile 34 % Social Roles - Score 48 (within normal limits) Social Role - Percentile 42 % GH Physical - Score 47.7 GH Physical - Percentile 41 % GH Mental - Score 56 GH Mental - Percentile 73 % T-scores: mean of general population = 50. 5 points is clinically meaningfully difference Percentiles provide an indication of how the patient's score ranks in relation to the general population. Higher percentile rankings indicate better function/quality of life. 50th percentile is the average of the general population and indicates half of respondents had a worse score. Lower is Better 05/29/2019 Fatigue - Score 42 (within normal limits) Fatigue - Percentile 79 % T-scores: mean of general population = 50. 5 points is clinically meaningfully difference Percentiles provide an indication of how the patient's score ranks in relation to the general population. Higher percentile rankings indicate better function/quality of life. 50th percentile is the average of the general population and indicates half of respondents had a worse score. OBJECTIVE MEASURES WITH LEVEL OF FUNCTION: UE AROM R Shoulder Flex: 103 Degrees R Shoulder ABduction: 120 Degrees R Shoulder Internal Rotation (Functional): T12 R Shoulder External Rotation (Functional): Occiput L Shoulder Flex: 165 Degrees L Shoulder ABduction: 170 Degrees L Shoulder Internal Rotation (Functional): T6 L Shoulder External Rotation (Functional): T4 UE and Cervical Strength Strength Tested: Shoulder All R Shoulder Flexion: 4/5 R Shoulder Abduction (C5): 4/5 R Shoulder Internal Rotation: 5/5 R Shoulder External Rotation: 4/5 R Shoulder Horizontal ABduction: 4-/5 L Shoulder Flexion: 5/5 L Shoulder Abduction (C5): 5/5 L Shoulder Internal Rotation: 5/5 L Shoulder External Rotation: 4+/5 L Shoulder Horizontal ABduction: 4+/5 Special Tests - Shoulder Shoulder Special Tests: Empty Can;Cuellar-Saleem; Neer Empty Can: Right Negative(painful but good effort) Alisa-Saleem: Right Positive Neer: Right Positive Education: Education Learning Preferences: Demonstration;Explan ation;Performance;Pr inted Materials Barriers: None Learning/educational needs: Home exercise program;Plan of Care Education Provided: Yes, see treatment interventions for education provided Education Provided To: Patient Education Mode/Type: Demonstration;Explan ation/Discussion;Lit erature/Printed Materials;Performanc e Response to Education/Teach Back: States/Identifies;Re turn Demonstration TREATMENT: Evaluation Therapeutic Exercise: 1: Long discussion with shoulder models explaining mechanics behind shoulder impingement, bursitis, and tendonitis. Also discussed body mechanics, avoiding painful activities currently, and need for work station evaluation 2: *Shoulder pulleys 3x20 3: *Shoulder pendulums 3x20 4: *R flexion isometrics 3x10 5 sec holds 5: *R ER isometric holds 3x10 5 sec holds Skilled Intervention: Patient was educated in proper exercise technique and purpose for exercises. Skilled judgment was provided in selection of appropriate interventions. Provided written instruction for home exercise program to facilitate proper performance and compliance. Correct performance of therapeutic exercises was facilitated with verbal, visual and tactile cuing. Billing: [facility]: Evaluation - Low Complexity ([id number]) Therapeutic Exercise ([id number]): 1:1 time: 28 minutes (2 units: 23-37 mins) Total time: 50 minutes Loren Luna PT Normal [facility] CNOVon 07-05-2018 [facility] G[facility] CARCAM[facility] ([id number]) 1960 F Date Time Provider Department 07/05/18 8:30 AM CHELY IBANEZ [facility] [facility] During your visit today, we recorded the following information about you: Temperature Pulse Respiration Blood pressure 97.9 degrees 62/minute 16/minute 120/80 Weight 73.5 kg Chely Ibanez APRN.TEST DATA DEVELOPER 07/05/2018 9:46 AM Signed Subjective HPI Pt presents with c/o right wrist pain x 2 days. Denies known recent/remote injury. Was painting marie in her home 4 days ago. Pain is intermittent, sharp, severe when it occurs. Occasionally radiates up right arm just above elbow. Pain mostly occurs with movement, but occasionally arm is at rest. Pain is worse at HS. Has awoken pt several times. Full ROM. Denies sensory changes, weakness. Took several doses of advil with minimal improvement. Review of Systems Constitutional: Negative for chills and fever. Musculoskeletal: Positive for joint pain. Negative for back pain, falls, myalgias and neck pain. Objective Physical Exam Constitutional: She is oriented to person, place, and time and well-developed, well-nourished, and in no distress. No distress. Musculoskeletal: Right wrist: She exhibits tenderness and bony tenderness. She exhibits normal range of motion, no swelling, no effusion, no crepitus, no deformity and no laceration. Full active ROM against resistance. Hand grasp 5/5. Cap refill 2 sec. Brachial and radial pulses 2+. Neurological: She is alert and oriented to person, place, and time. Skin: Skin is warm and dry. She is not diaphoretic. BP 120/80 Pulse 62 Temp 36.6 ?C (97.9 ?F) (Left Tympanic) Resp 16 Wt 73.5 kg (162 lb) SpO2 97% .Patient presents with: Arm Pain: Right No past medical history on file. No past surgical history on file. ALLERGIES Betadine [Povidone-Iodine]; Keflex [Cephalexin]; Penicillin; Tetracycline MEDICATIONS FINACEA 15 % foam SYMBICORT 160-4.5 mcg/actuation inhaler 2 PUFF INHALATION TWICE A DAY sertraline (ZOLOFT) 50 mg tablet spironolactone (ALDACTONE) 50 mg tablet predniSONE (DELTASONE) 10 mg tablet Take 4 tabs daily for 3 days, then 2 tabs daily for 3 days, then 1 tab daily for 3 days with food. No family history on file. Social History Tobacco Use - Smoking status: Never Smoker - Smokeless tobacco: Never Used Substance Use Topics - Alcohol use: Not on file - Drug use: Not on file ASSESSMENT/PLAN: 1. Right wrist pain - ICD9: 719.43, ICD10: M25.531 - XR WRIST GENERAL 3V PA/LAT/OBL RT Will call with result and any further POC. - PREDNISONE 10 MG TABLET Encouraged application of heat or ice prn. May take tylenol prn. The patient is instructed to return or seek emergency treatment if symptoms become worse or with any acute change in condition. The patient verbalizes understanding and is in agreement with plan of care. Chely Ibanez CNP Referring Provider: SELF [[id number]] Allergies As of Date: 07/05/2018 Noted Allergy Reaction BETADINE (POVIDONE-IODINE) 07/05/2018 2 - Rash KEFLEX (CEPHALEXIN) 07/05/2018 2 - Rash PENICILLIN 07/05/2018 4 - Hives TETRACYCLINE 07/05/2018 2 - Rash Comments: All cyclines Date Reviewed: 07/05/2018 Reviewed by: Elida Frederick Ma - Fully Assessed Reason for Visit: Arm Pain [137] Cmt: Right Primary Visit Diagnosis:Right wrist pain [M25.531] Order(s):XR WRIST GENERAL 3V PA/LAT/OBL RT [[id number]] Order #: [id number] FUTURE predniSONE (DELTASONE) 10 mg tabletTake 4 tabs daily for 3 days, then 2 tabs daily for 3 days, then 1 tab daily for 3 days with food.Disp: 21 tabletRfl: 0 Prescriptions as of 07/05/2018 Sig: FINACEA 15 % TOPICAL FOAM SYMBICORT 160 MCG-4.5 MCG/ACT* 2 PUFF INHALATION TWICE A DAY SERTRALINE 50 MG TABLET SPIRONOLACTONE 50 MG TABLET PREDNISONE 10 MG TABLET Take 4 tabs daily for 3 days,* Problem List As Of Date: 07/05/2018 (None) Prescriptions ordered this encounter Disp Refills Start End PREDNISONE 10 MG TABLET 21 t* 0 07/05/2018 07/14/2018 Sig: Take 4 tabs daily for 3 days, then 2 tabs daily for 3 days, then 1 tab daily for 3 days with food. Letter Text Encounter Status:Closed by CHELY IBANEZ CNP on 07/05/18 [facility] PROGRESSon 07-05-2018 PROGRESS HNO ID: [id number] Author: Chely Ibanez Service: ? Author Type: Nurse Practitioner Type: Progress Notes Filed: 07/05/2018 9:46 AM Note Text: Subjective HPI Pt presents with c/o right wrist pain x 2 days. Denies known recent/remote injury. Was painting marie in her home 4 days ago. Pain is intermittent, sharp, severe when it occurs. Occasionally radiates up right arm just above elbow. Pain mostly occurs with movement, but occasionally arm is at rest. Pain is worse at HS. Has awoken pt several times. Full ROM. Denies sensory changes, weakness. Took several doses of advil with minimal improvement. Review of Systems Constitutional: Negative for chills and fever. Musculoskeletal: Positive for joint pain. Negative for back pain, falls, myalgias and neck pain. Objective Physical Exam Constitutional: She is oriented to person, place, and time and well-developed, well-nourished, and in no distress. No distress. Musculoskeletal: Right wrist: She exhibits tenderness and bony tenderness. She exhibits normal range of motion, no swelling, no effusion, no crepitus, no deformity and no laceration. Full active ROM against resistance. Hand grasp 5/5. Cap refill 2 sec. Brachial and radial pulses 2+. Neurological: She is alert and oriented to person, place, and time. Skin: Skin is warm and dry. She is not diaphoretic. BP 120/80 Pulse 62 Temp 36.6 ?C (97.9 ?F) (Left Tympanic) Resp 16 Wt 73.5 kg (162 lb) SpO2 97% .Patient presents with: Arm Pain: Right No past medical history on file. No past surgical history on file. ALLERGIES Betadine [Povidone-Iodine]; Keflex [Cephalexin]; Penicillin; Tetracycline MEDICATIONS FINACEA 15 % foam SYMBICORT 160-4.5 mcg/actuation inhaler 2 PUFF INHALATION TWICE A DAY sertraline (ZOLOFT) 50 mg tablet spironolactone (ALDACTONE) 50 mg tablet predniSONE (DELTASONE) 10 mg tablet Take 4 tabs daily for 3 days, then 2 tabs daily for 3 days, then 1 tab daily for 3 days with food. No family history on file. Social History Tobacco Use - Smoking status: Never Smoker - Smokeless tobacco: Never Used Substance Use Topics - Alcohol use: Not on file - Drug use: Not on file ASSESSMENT/PLAN: 1. Right wrist pain - ICD9: 719.43, ICD10: M25.531 - XR WRIST GENERAL 3V PA/LAT/OBL RT Will call with result and any further POC. - PREDNISONE 10 MG TABLET Encouraged application of heat or ice prn. May take tylenol prn. The patient is instructed to return or seek emergency treatment if symptoms become worse or with any acute change in condition. The patient verbalizes understanding and is in agreement with plan of care. Chely Ibanez, LAVON Normal [facility] PROGRESS HNO ID: [id number] Author: Riya Ace Service: ? Author Type: ? Type: Progress Notes Filed: 07/05/2018 9:34 AM Note Text: Radiology Service Progress Note PATIENT NAME: Gema Carcamo DATE OF SERVICE: July 05, 2018 TIME: 9:28 AM PATIENT IDENTITY VERIFICATION COMPLETED USING TWO (2) METHODS: Patient confirmed name verbally and Date of . PATIENT GENDER DATA: Female. status: : No status: NO. PATIENT RELEVANT IMPLANT DATA REVIEWED: Not Applicable RADIOLOGY DEPARTMENT: General X-ray: Exam(s) Completed: Upper Extremity X-Ray(s): Wrist, right : PERIPHERAL IV DATA: Not applicable SIGNED BY: Riya Ace July 05, 2018 9:28 AM Normal [facility] XR WRIST 3V PA/LAT/OBL RTon 07-05-2018 XR WRIST 3V PA/LAT/OBL RT * * *Final Report* * * DATE OF EXAM: Jul 05 2018 9:34AM [id number] - XR WRIST 3V PA/LAT/OBL RT / PROCEDURE REASON: Right wrist pain * * * * Physician Interpretation * * * * EXAM TITLE: XR WRIST 3V PA/LAT/OBL RT EXAM DATE/TIME: 07/05/2018 9:34 AM COMPARISON: None. CLINICAL INDICATION/HISTORY: Pain. TECHNIQUE: PA, lateral, and oblique views of the right wrist are presented. FINDINGS: No acute fractures or subluxations are noted. The wrist spaces are well preserved. The mineralization of the bones is normal. There is no significant soft tissue swelling. IMPRESSION: No acute radiographic abnormalities seen in the right wrist. Cell Feed Department Supervisor: PSCB Transcribe Date/Time: Jul 05 2018 10:16A Dictated by : ELSIE JUÁREZ MD This examination was interpreted and the report reviewed and electronically signed by: ELSIE JUÁREZ MD on Jul 05 2018 10:18AM EST [id number] CN Normal [facility] Office Visit: chronic cough and asthmaon 01-15-2017 Protein mass conc Done [facility] Work Phone: Tobacco smoking status NHIS Never [facility] Work Phone: Tobacco smoking status NHIS Never smoker [facility] Work Phone: 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 Laverne Falcon MD Work Phone: [facility] 07-28-2024 08:20-0400 Diastolic blood pressure 68 mm[Hg] Dr. Laverne Falcon MD Work Phone: [facility] 07-28-2024 08:20-0400 Heart rate 54 /min Dr. Laverne Falcon MD Work Phone: [facility] 07-28-2024 08:20-0400 Respiratory rate 14 /min Dr. Laverne Falcon MD Work Phone: [facility] 07-28-2024 08:20-0400 SaO2% (BldA) [Mass fraction] 96 % Dr. Laverne Falcon MD Work Phone: [facility] 07-28-2024 08:20-0400 Systolic blood pressure 112 mm[Hg] Dr. Laverne Falcon MD Work Phone: [facility] 07-28-2024 06:48-0400 Body height 165.[address] Laverne Falcon MD Work Phone: [facility] 07-28-2024 06:48-0400 Body mass index (BMI) [Ratio] 25.3 kg/m2 Dr. Laverne Falcon MD Work Phone: [facility] 07-28-2024 06:48-0400 Body weight [address] Laverne Falcon MD Work Phone: [facility] 06-11-2024 14:43-0500 Body mass index (BMI) [Ratio] 26.2 kg/m2 Dr. Laverne Falcon MD Work Phone: [facility] 06-11-2024 14:43-0500 Body weight 71.[address] Laverne Falcon MD Work Phone: [facility] 06-11-2024 14:43-0500 Diastolic blood pressure 67 mm[Hg] Dr. Laverne Falcon MD Work Phone: [facility] 06-11-2024 14:43-0500 Heart rate 73 /min Dr. Laverne Falcon MD Work Phone: [facility] 06-11-2024 14:43-0500 Respiratory rate 17 /min Dr. Laverne Falcon MD Work Phone: [facility] 06-11-2024 14:43-0500 SaO2% (BldA) [Mass fraction] 95 % Dr. Laverne Falcon MD Work Phone: [facility] 06-11-2024 14:43-0500 Systolic blood pressure 120 mm[Hg] Dr. Laverne Falcon MD Work Phone: [facility] 01-15-2017 07:33-0400 BMI (Body Mass Index) 26.36 kg/m2 Teodora Oliveros LPN [facility] Work Phone: 01-15-2017 07:33-0400 Body Temperature 97.6 [degF] Teodora Oliveros LPN [facility] [place] Work Phone: 01-15-2017 07:33-0400 BP Diastolic 94 mm[Hg] Teodora Oliveros LPN [facility] Work Phone: 01-15-2017 07:33-0400 BP Systolic 157 mm[Hg] Teodora Oliveros LPN [facility] Work Phone: 01-15-2017 07:33-0400 Height 163.83 cm Teodora Oliveros INDOOR LANDSCAPE ARCHITECT [facility] Work Phone: 01-15-2017 07:33-0400 Pulse (Heart Rate) 82 /min Teodora Oliveros INDOOR LANDSCAPE ARCHITECT [facility] Work Phone: 01-15-2017 07:33-0400 Respiratory Rate 18 /min Teodora Oliveros INDOOR LANDSCAPE ARCHITECT [facility] Work Phone: 01-15-2017 07:33-0400 Weight 70.76 kg Teodora Oliveros INDOOR LANDSCAPE ARCHITECT [facility] Work Phone: 01-20-2016 13:01-0400 Body Temperature 97.16 [degF] Teodora Oliveros INDOOR LANDSCAPE ARCHITECT [facility] Work Phone: 01-20-2016 13:01-0400 BSA (Body Surface Area) 1.77 m2 Teodora Oliveros INDOOR LANDSCAPE ARCHITECT [facility] Work Phone: 01-20-2016 13:01-0400 Height 163.83 cm Teodora Oliveros INDOOR LANDSCAPE ARCHITECT [facility] Work Phone: 01-20-2016 13:01-0400 Weight 70.45 kg Teodora Oliveros INDOOR LANDSCAPE ARCHITECT [facility] [employer] Phone: Encounters Encounter Date Encounter Type Care Provider Facility Start: 07-28-2024 ambulatory Laverne Falcon Facility: [facility] [place] Start: 07-28-2024 Non-patient / Non-visit Dr. Dario Ruiz MD -[facility] Start: 07-28-2024 End: 07-28-2024 Admission to same day surgery center Dr. Kelin Ruiz MD -Endoscopy Work Phone: Start: 07-28-2024 End: 07-28-[address] Laverne Falcon MD Work Phone: [facility] Work Phone: Start: 06-11-2024 End: 06-11-[address] Kelin Ruiz MD -[facility] Work Phone: Start: 06-11-2024 End: [facility] Start: 02-18-2024 End: 02-18-2024 ambulatory [facility] Facility:[facility] Start: 02-16-2023 End: 02-16-2023 ambulatory [facility] Work Phone: Start: 02-16-2023 End: 02-16-2023 Patient encounter procedure [facility]-Outpatient Breast Imaging Work Phone: Start: 07-12-2022 End: 07-12-2022 ambulatory [facility] Work Phone: Start: 07-12-2022 End: 07-12-2022 Patient encounter procedure [facility]-Laboratory, Specimen Start: 05-25-2022 End: 05-30-2022 ambulatory CHAGO BENNETT DO Facility:[facility] Start: 02-15-2022 End: 02-15-2022 ambulatory [facility] Work Phone: Start: 02-15-2022 End: 02-15-2022 Patient encounter procedure [facility]-Outpatient Breast Imaging Procedures Date Procedure Procedure Detail Performing Clinician Start: 07-28-[address] Laverne Falcon MD Work Phone: Start: 02-16-2023 Screening mammography Start: 02-15-2022 Screening mammography Plan of Treatment Date Care Activity Detail Author Start: 07-28-2024 Patient discharge [facility] Start: 01-15-2017 End: 01-15-2017 Follow Up Appt 1 year Follow Up Appt 1 year [facility] [place] Work Phone: Start: 01-20-2016 End: 01-20-2016 Follow Up Appt 1 year Follow Up Appt 1 year [facility] Work Phone: Start: 10-28-2015 End: 10-28-2015 Follow Up Appt 3 months Follow Up Appt 3 months [facility] Work Phone: Start: 10-28-2015 End: 10-28-2015 Pulmonary Function Test - complete Pulmonary Function Test - complete [facility] Phone: Start: 07-27-2015 End: 07-27-2015 Chest x-ray X-Ray, Chest, PA & Lateral [facility] Phone: Start: 07-27-2015 End: 07-27-2015 Follow Up Appt 3 months Follow Up Appt 3 months [facility] Work Phone: Patient referral [facility] Work Phone: Payers Date Payer Category Payer Self-pay [id number] 2022 Unknown [id number] 1960 Unknown [id number] Unknown [employer] [id number] Unknown [id number] Unknown [id number] Unknown [id number] Unknown [id number] Social History Date Type Detail Facility Start: 02-25-2019 Tobacco smoking status NHIS Unknown if ever smoked [facility] Start: 1960 Sex Assigned At Female [facility] Start: 07-28-2024 Tobacco smoking status NHIS Never smoked tobacco (finding) [facility] Start: 07-28-2024 Sex Female (finding) [facility] NEGATED: Highlighted row Not [facility] Goals Date Patient Goal Desired Activity /State Mental Status Date Assessment Result Facility 07-28-2024 Cognitive function Level Of Consciousness Sedated [facility] Work Phone: 07-28-2024 Cognitive function Voice/Name [facility] Work Phone: Clinical Notes 06-11-2024 to 07-28-2024 Note Date & Type Note Facility 07-28-2024 Procedure note [facility] 07-28-2024 Procedure note [facility] 07-28-2024 Consult note [facility] 07-28-2024 History and physi og note [facility] 07-28-2024 Note [facility] Medical Records Department [address] [place] [address] History Physical Exam 07/28/24724 MR#: [id number] Acct: [id number] Name: GEMA CARCAMO Rep #: [id number] : 1960 64 From: Kelin Ruiz MD PCP: Dr. Laverne Falcon MD Status:REG [facility] Location: [place] [address] HPI - General General Date of Service: 07/28/24 HPI Narrative GEMA CARCAMO, is a 64 F who presents for diagnostic colonoscopy due to positive Cologuard. Patient denies any changes since last office visit. 06/11/24 office visitHPI: 64-year-old female presents due to positive Cologuard. Patient never had previous colonoscopy. Patient denies any chronic abdominal pain/nausea/vomiting/reflux. Patient denies any family history of colon cancer. Patient has bowel movements daily denies any blood. Patient states she does have loose stools maybe 4 days out of the week. [facility] Medical History Non-smoker Moderate persistent asthma Asthma Home Medications ???Medication ???Instructions ???Recorded ???Last Taken ???Type sertraline 25 mg tablet 25 mg PO QDAY 06/11/24 Unknown His tory spironolactone 50 mg tablet 50 mg PO QAM 06/11/24 Unknown Hist ory biotin 1 mg capsule 2 mg PO DAILY 07/23/24 Unknown His tory calcium 100 mg capsule 200 mg PO DAILY 07/23/24 Unknown H istory Allergy/AdvReac Type Severity Reaction Status Date / Time cephalexin monohydrate (From Allergy Rash Verified 07/28/24 06:48 Keflex) doxycycline Allergy Rash Verified 07/28/24 06:48 minocycline Allergy Hives Verified 07/28/24 06:48 Penicillins (PCN) Allergy Rash Verified 07/28/24 06:48 povidone-iodine (From Allergy Rash Verified 07/28/24 06:48 Betadine) soap (From Betadine) Allergy rash Verified 07/28/24 06:48 tetracycline Allergy Rash Verified 07/28/24 06:48 Family History Father Heart disease Hypertension Mother Asthma Surgical History History of wisdom tooth extraction History of appendectomy Social History Smoking Status: Never smoker alcohol intake: current alcohol intake frequency: holidays/special occasions only substance use type: does not use Past Medical/Surgical History Planned Operation Planned Operative Procedure(s): CSCOPE Previous Hospitalizations/Surgeries HX Hospitalizations: No Any Problems With Anesthesia: No You/Your Family Experience Fever (Hyperthermia) With Anes: No Cholinesterase deficiency: No Cardiovascular Hx Hypertension: No Respiratory Hx Asthma: Yes Hx Sleep Apnea: No Hx Respiratory Tract Infection/Cold (presently): No Do You Snore Loudly (louder than talking or can be heard): No Do You Often Feel Tired/ Fatigued/ Sleepy Dring Daytime?: No Has Anyone Observed You Stop Breathing During Sleep?: No Result (for STOP score): Negative Smoking Status: Never smoker Neurological Does patient have nerve stimulator: No Reproduction : No Miscellaneous Recent Exposure to Contagious Disease: No Allergies cephalexin monohydrate (From Keflex) Allergy (Verified 07/28/24 06:48) Rash hives doxycycline Allergy (Verified 07/28/24 06:48) Rash minocycline Allergy (Verified 07/28/24 06:48) Hives Penicillins (PCN) Allergy (Verified 07/28/24 06:48) Rash povidone-iodine (From Betadine) Allergy (Verified 07/28/24 06:48) Rash soap (From Betadine) Allergy (Verified 07/28/24 06:48) rash tetracycline Allergy (Verified 07/28/24 06:48) Rash hives Discharge Is Pt Admitted From a Assisted, or a Usp: No After D/C, Where Do you Plan to Go: Return Home Vital Signs Vital Signs Vital Signs: 07/28/24 06:48 07/28/24 06:48 07/28/24 07:07 Temperature 98.2 F 98.2 F Temperature Source Temporal Pulse Rate 76 76 Respiratory Rate 16 16 Respiratory Pattern Normal Blood Pressure 137/67 H 137/67 H Blood Pressure Mean 90 Blood Pressure Source Monitor Blood Pressure Position Semi-Fowlers Blood Pressure Location Right Arm Pulse Ox 98 98 Oxygen Delivery Method Room Air Weight Weight: 152 lb 1.903 oz Body Mass Index (BMI) 25.3 Physical Exam Const alert, oriented x3 and no apparent distress HEENT normocephalic and head/scalp atraumatic Resp normal respiratory effort Cardio regular rate GI soft to palpation and non-tender; Negative for non-distended Palpation: Negative for guarding Extremity no clubbing, cyanosis or edema Skin no rashes or lesions noted Neuro CN's II-XII intact bilaterally Psych mental status grossly normal Assessment Plan Assessment/Plan (1) Positive colorectal cancer screening using Cologuard (more content not included)... [facility] 07-28-2024 Consult note [facility] 06-11-2024 Evaluation note Diagnosis Onset Date Resolution Positive colorectal cancer screening using Cologuard test acute June 11, 2:30pm Positive colorectal cancer screening using Cologuard test acute July 28, 2024 6:11am [facility] Work Phone: Consult note Author Destin Naranjo [facility] Note Date/Time July 28, 2024 7:08 am Medical Records Department [address] [place] [address] Pre-Anesthesia Evaluation 07/28/24706 MR#: [id number] Acct: [id number] Name: GEMA CARCAMO Rep #:[id number] : 1960 64 From: Destin Naranjo MD PCP: Dr. Laverne Falcon MD Status:REG SDC Y Race: C Location: [place] [address]- ASA Classification* ASA Classification ASA Classification: 2 Assessment & Plan Anesthesia* Anesthesia Assessment Anesthesia Assessment: Discussed sedation and/or anesthesia options, risks, benefits, and alternatives with patient/parents/legal guardian/POA. Questions invited. The patient/parents/legal guardian/POA seems to understand and agrees to proceedwith anesthesia plan. Reviewed the physical assessment, medical history, allergy history and patient home medications list prior to surgery/procedure/anesthetic and documented any changes. Performed airway and anesthesia risk assessments. Anesthesia Type Anesthesia Type: MAC Anesthesia Focused Assessment* Temperature: 98.2 F Pulse Rate: 76 Blood Pressure: 137/67 Respiratory Rate: 16 Pulse Ox: 98 Airway Assessment Mouth opens: >3 cm Mallampati Score: II Focused Labs Anesthesia Preop lab: CBC WBC 7.1 K/mm3 (4.4-11.0) 07/12/22 08:50 07/12/22 RBC 4.80 M/mm3 (4.2-5.4) 07/12/22 08:50 07/12/22 Hgb 14.3 g/dL (12.0-15.0) 07/12/22 08:50 07/12/22 Hct 43.6 % (37-47) 07/12/22 08:50 07/12/22 Plt Count 466 K/mm3 (150-450) H 07/12/22 08:50 07/12/22 CHEMISTRY Potassium 4.6 mmol/L (3.5-5.1) 07/12/22 08:50 07/12/22 Sodium 136 mmol/L (136-145) 07/12/22 08:50 07/12/22 BUN 13 mg/dL (7-18) 07/12/22 08:50 07/12/22 Creatinine 0.90 mg/dL (0.55-1.02) 07/12/22 08:50 07/12/22 Glucose 101 mg/dL (74-106) 07/12/22 08:50 07/12/22 COAG Pre-Assessment Diagnosis/Proposed Procedure Planned Operative Procedure(s): CSCOPE Anesthesia History Anesthesia History - service aide: Anesthesia History - service aide Hx Hospitalization No 07/23/24 10:38 Any Problems With Anesthesia No 07/23/24 10:38 Cholinesterase deficiency No 07/23/24 10:38 You/Your Family Experience No 07/23/24 10:38 fever (hyperthermia) with Relationship Recent Exposure to Contagious No 07/28/24 06:48 Disease Does patient have nerve No 07/23/24 10:38 stimulator Patient instructed to have device shut off --Does patient have Pacemaker No 07/28/24 06:48 or ICD? When Was Last Pacemaker Check QUESTION #4 FULL TEXT: You/Your Family Experience fever (hyperthermia) with Anesthesia Last Oral Intake Last Oral intake: Last Oral Intake NPO since 23:00 07/28/24 06:48 Meds taken in AM with sips of No 07/28/24 06:48 water? Meds patient instructed to take am of surgery PONV PONV - service aide: PONV - service aide Female Yes 07/23/24 10:38 HX of Motion Sickness Yes 07/23/24 10:38 HX of N/V After Surgery No 07/23/24 10:38 Non-Smoker Yes 07/23/24 10:38 Duration of Surgery greater No 07/23/24 10:38 than 60 minutes Number of Risk Factors 3 07/23/24 10:38 PONV Score Moderate Risk 07/23/24 10:38 Height & Weight Height & Weight: Anesthesia: Height & Weight Height 5 ft 5 in 07/28/24 06:48 Weight: 69 kg 07/28/24 06:48 Body Mass Index (BMI) 25.3 07/28/24 06:48 Respiratory Assessment Respiratory Assessment - service aide: Respiratory Tract Infection Hx - service aide Hx Respiratory Tract Infection No 07/23/24 10:38 STOP Sleep Apnea STOP Sleep Apnea - service aide: STOP Sleep Apnea - service aide Hx Hypertension No 07/23/24 10:38 Hx Sleep Apnea No 07/23/24 10:38 CPAP BIPAP Do you snore loudly (louder No 07/23/24 10:38 than talking or can be heard Do you often feel tired/ No 07/23/24 10:38 fatigued/ sleepy during daytime? Has anyone observed you stop No 07/23/24 10:38 breathing during sleep? STOP Results Negative 07/23/24 10:38 QUESTION #5 FULL TEXT : Do you snore loudly (louder than talking or can be heard through closed doors)? Tobacco Use History Tobacco Use History - service aide: Tobacco Use History - service aide Tobacco Use Smoking Status Never smoker 07/23/24 10:38 Hx Tobacco Use No 07/23/24 10:38 Years Smoking Packs Smoked per Day Smoking Cessation Date was within the last 15 years Hx Smoking Cessation Date Hx Smoking Cessation Counseling Hematologic Medial History Hematologic Hx - service aide: Hematologic Medical Hx - hand sizer Hx of Blood Transfusion No 07/23/24 10:38 Hx of Transfusion in last 3 No 07/23/24 10:38 Months Date of Last Transfusion (if within last 3 months) Ever experience any problems No 07/23/24 10:38 with transfusion(s)? Specify any problems Hx of Preganancy in last 3 N/A 07/23/24 10:38 Months Nurse Filling Out Transfusion NBUCHER 07/23/24 10:38 & Questions: Date: 07/23/24 07/23/24 10:38 Time: 10:39 07/23/24 10:38 Patient unable to answer at this time (ie. confused, unrespo /Reproduction History /Reproductive History - service aide: /Reproductive Hx- service aide Hx Now No 07/23/24 10:38 Gestational Age (in weeks): EDC: Hx Hx Para Hx Section SAB No 07/23/24 10:38 [facility] Medical History Non-smoker Moderate persistent asthma Asthma Home Medications ?Medication ?Instructions ?Recorded ?Last Taken ?Type sertraline 25 mg tablet 25 mg PO QDAY 06/11/24 Unkno wn History spironolactone 50 mg tablet 50 mg PO QAM 06/11/24 Unkn own History biotin 1 mg capsule 2 mg PO DAILY 07/23/24 Unkno wn History calcium 100 mg capsule 200 mg PO DAILY 07/23/24 Unk nown History Allergy/AdvReac Type Severity Reaction Status Date / Time cephalexin monohydrate (From Allergy Rash Verified 07/28/24 06:48 Keflex) doxycycline Allergy Rash Verified 07/28/24 06:48 minocycline Allergy Hives Verified 07/28/24 06:48 Penicillins (PCN) Allergy Rash Verified 07/28/24 06:48 povidone-iodine (From Allergy Rash Verified 07/28/24 06:48 Betadine) soap (From Betadine) Allergy rash Verified 07/28/24 06:48 tetracycline Allergy Rash Verified 07/28/24 06:48 Family History Father Heart disease Hypertension Mother Asthma Surgical History History of wisdom tooth extraction History of appendectomy Social History Smoking Status: Never smoker alcohol intake: current alcohol intake frequency: holidays/special occasions only substance use type: does not use Review of Systems (Anesthesia) ROS Narrative System reviewed and no additional complaints, except as documented. 07/28/24 0708 <Electronically signed by Destin Naranjo MD > Date _ Destin Naranjo MD Cosigner Signature: Date CC: ~ Signed [facility] Work Phone: Consult note Author Francisco Baeza [facility] Note Date/Time July 28, 2024 8:09 am Medical Records Department [address] [place] [id number] Anesthesia Postop Eval I 07/28/24 0809 MR#: [id number] Acct: [id number] Name: GEMA CARCAMO Rep #:[id number] : 1960 64 From: Francisco Baeza PCP: Dr. Laverne Falcon MD Status:REG SDC Y Race: C Location: [place] [address] Anesthesia: Postop Eval I Current Vital Signs Temperature: 97.2 F Pulse Rate: 59 Blood Pressure: 130/78 Respiratory Rate: 16 Pulse Ox: 97 Oxygen Delivery Method: Room Air Assessment Airway patent: Yes Spontaneous unlabored respirations: Yes Mental status: Asleep nausea: No Vomiting: No Anesthesia Complication: No Fluid Hydration Crystalloid volume administer (ml): 60 Total IV fluid infused: 60 Progress Note Anesthesia document: Postop Eval 1 completed: Yes 07/28/24808 <Electronically signed by Francisco Baeza > Date _ Francisco Danielsignbasilio Signature: Date CC: ~ Signed [facility] Work Phone: Evaluation noteNo assessment information available [facility] Work Phone: History and physical note Author Kelin Ruiz [facility] Note Date/Time July 28, 2024 7:27 am [facility] Medical Records Department [address] [place] [address] History & Physical Exam 07/28/24724 MR#: [id number] Acct: [id number] Name: GEMA CARCAMO Rep #:[id number] : 1960 64 From: Kelin Ruiz MD PCP: Dr. Laverne Falcon MD Status:[facility] Location: [place] [address] HPI - General General Date of Service: 07/28/24 HPI Narrative GEMA CARCAMO, is a 64 F who presents for diagnostic colonoscopy due to positive Cologuard. Patient denies any changes since last office visit. 06/11/24 office visitHPI: 64-year-old female presents due to positive Cologuard. Patient never had previous colonoscopy. Patient denies any chronic abdominal pain/nausea/vomiting/reflux. Patient denies any family history of colon cancer. Patient has bowel movements daily denies any blood. Patient states she does have loose stools maybe 4 days out of the week. [facility] Medical History Non-smoker Moderate persistent asthma Asthma Home Medications ?Medication ?Instructions ?Recorded ?Last Taken ?Type sertraline 25 mg tablet 25 mg PO QDAY 06/11/24 Unkno wn History spironolactone 50 mg tablet 50 mg PO QAM 06/11/24 Unkn own History biotin 1 mg capsule 2 mg PO DAILY 07/23/24 Unkno wn History calcium 100 mg capsule 200 mg PO DAILY 07/23/24 Unk nown History Allergy/AdvReac Type Severity Reaction Status Date / Time cephalexin monohydrate (From Allergy Rash Verified 07/28/24 06:48 Keflex) doxycycline Allergy Rash Verified 07/28/24 06:48 minocycline Allergy Hives Verified 07/28/24 06:48 Penicillins (PCN) Allergy Rash Verified 07/28/24 06:48 povidone-iodine (From Allergy Rash Verified 07/28/24 06:48 Betadine) soap (From Betadine) Allergy rash Verified 07/28/24 06:48 tetracycline Allergy Rash Verified 07/28/24 06:48 Family History Father Heart disease Hypertension Mother Asthma Surgical History History of wisdom tooth extraction History of appendectomy Social History Smoking Status: Never smoker alcohol intake: current alcohol intake frequency: holidays/special occasions only substance use type: does not use Past Medical/Surgical History Planned Operation Planned Operative Procedure(s): CSCOPE Previous Hospitalizations/Surgeries HX Hospitalizations: No Any Problems With Anesthesia: No You/Your Family Experience Fever (Hyperthermia) With Anes: No Cholinesterase deficiency: No Cardiovascular Hx Hypertension: No Respiratory Hx Asthma: Yes Hx Sleep Apnea: No Hx Respiratory Tract Infection/Cold (presently): No Do You Snore Loudly (louder than talking or can be heard): No Do You Often Feel Tired/ Fatigued/ Sleepy Dring Daytime?: No Has Anyone Observed You Stop Breathing During Sleep?: No Result (for STOP score): Negative Smoking Status: Never smoker Neurological Does patient have nerve stimulator: No Reproduction : No Miscellaneous Recent Exposure to Contagious Disease: No Allergies cephalexin monohydrate (From Keflex) Allergy (Verified 07/28/24 06:48) Rash hives doxycycline Allergy (Verified 07/28/24 06:48) Rash minocycline Allergy (Verified 07/28/24 06:48) Hives Penicillins (PCN) Allergy (Verified 07/28/24 06:48) Rash povidone-iodine (From Betadine) Allergy (Verified 07/28/24 06:48) Rash soap (From Betadine) Allergy (Verified 07/28/24 06:48) rash tetracycline Allergy (Verified 07/28/24 06:48) Rash hives Discharge Is Pt Admitted From a Assisted, or a Usp: No After D/C, Where Do you Plan to Go: Return Home Vital Signs Vital Signs Vital Signs: 07/28/24 06:48 07/28/24 06:48 07/28/24 07:07 Temperature 98.2 F 98.2 F Temperature Source Temporal Pulse Rate 76 76 Respiratory Rate 16 16 Respiratory Pattern Normal Blood Pressure 137/67 H 137/67 H Blood Pressure Mean 90 Blood Pressure Source Monitor Blood Pressure Position Semi-Fowlers Blood Pressure Location Right Arm Pulse Ox 98 98 Oxygen Delivery Method Room Air Weight Weight: 152 lb 1.903 oz Body Mass Index (BMI) 25.3 Physical Exam Const alert, oriented x3 and no apparent distress HEENT normocephalic and head/scalp atraumatic Resp normal respiratory effort Cardio regular rate GI soft to palpation and non-tender; Negative for non-distended Palpation: Negative for guarding Extremity no clubbing, cyanosis or edema Skin no rashes or lesions noted Neuro CN's II-XII intact bilaterally Psych mental status grossly normal Assessment & Plan Assessment/Plan (1) Positive colorectal cancer screening using Cologuard test: Surgery Risks - Colonoscopy I discussed with the patient the risks of the procedure: Yes Risks Include but are not Limited To: Risks include but are not limited to: Bleeding, perforation requiring further surgery, inability to complete colonoscopy requiring barium enema. 07/28/24726 <Electronically signed by Kelin Ruiz MD> Cosigner Signature (if applicable): CC: Dr. Laverne Falcon MD; Dr. Kelin Ruiz MD~ Signed [facility] Work Phone: Reason for referral (narrative)No reason for referral information availableWG[facility] Work Phone: Summary Purpose Family History No Family History Records Found Relationship Condition Age at Onset Recorded Date/T emanuel father Cardiac disease Unknown mother Asthma Unknown Relationship Condition Age at Onset Recorded Date/T emanuel father Cardiac disease Unknown Hypertension Unknown mother Asthma Unknown Advance Directives No Advanced Directives Records Found Advance Directive Response Recorded Date/ Time Living Will No November 13, 2014 7:43pm Power of Tailer In No November 13 7:43pm Advance Directive Response Recorded Date/ Time Living Will Yes July 23, 2024 10:38am Do you have a Healthcare Power of Tailer In? Yes July 23, 2024 10:38am Name of Medical Power of Tailer In July 23, 2024 10:38am Chief Complaint and Reason for Visit Chief Complaint SCREENING Chief Complaint Admit Date POSITIVE COLOGUARD June 11, 2024 2:30pm Reason for Visit Admit Date Positive colorectal cancer screening usi ng Cologuard test June 11, 2024 2:30pm Positive colorectal cancer screening usi ng Cologuard test July 28, 2024 6:11am Additional Source Comments INFORMATION SOURCE (unrecogn ized section and content) DATE CREATED AUTHOR 06/25/2019 [facility] DATE CREATED AUTHOR AUTHOR'S ORGANIZ ATION 05/30/2022 [facility] ([place]) DATE CREATED AUTHOR AUTHOR'S ORGANIZ ATION 08/08/2024 [facility] Goals (unrecognized section and content) Goals may be documented in a n alternate sectionGoals may be documented in an alternate sectionGoals may be documented in an alternate section Care Teams (unrecognized sec tion and content) Team Status: Active Member Role Status Dates Dr. Pop Smith MD Family Provider Active Dr. Maurice Mckeon , DO Primary Care Provider Active Team Status: Inactive Member Role Status Dates Dr. Maurice Mckeon DO Primary Care Provider Active Dr. Chago Bennett , DO Attending Provider, Referring Jose Armando ramirez Active Team Status: Active Member Role Status Dates Dr. Pop Smith MD Family Provider Active Dr. Chago Bennett , Primary Care Provider Active Team Status: Inactive Member Role Status Dates Dr. Chago Bennett , DO Primary Care Prov ider, Attending Provider, Referring Provider Active Team Status: Active Member Role Status Dates Dr. Laverne Falcon MD Primary Care Provider Active Team Status: Inactive Member Role Status Dates Dr. Laverne Falcon MD Primary Care Provider Active Start: June 11, 2024 End: June 11, 2024 Dr. Laverne Falcon MD Referring Provider Active Start: June 11, 2024 End: June 11, 2024 Dr. Kelin Ruiz MD Attending Provider Active Start: June 11, 2024 End: June 11, 2024 Team Status: Inactive Member Role Status Dates Dr. Laverne Falcon MD Primary Care Provider Active Start: July 28, 2024 End: July 28, 2024 Dr. Laverne Falcon MD Referring Provider Active Start: July 28, 2024 End: July 28, 2024 Dr. Kelin Ruiz MD Attending Provider Active Start: July 28, 2024 End: July 28, 2024 Team Status: Active Member Role Status Dates Dr. Laverne Falcon MD Primary Care Provider Active Start: July 28, 2024 Dr. Laverne Falcon MD Referring Provider Active Start: July 28, 2024 Dr. Kelin Ruiz MD Attending Provider Active Start: July 28, 2024 Dr. Kelin Ruiz MD Other Provider Active S tart: July 28, 2024 FOR RECORDS PERTAINING TO PATIENTS WHO ARE OR HAVE BEEN ENROLLED IN A CHEMICAL DEPENDENCY/SUBSTANCEABUSE PROGRAM, SOME INFORMATION MAY BE OMITTED. This clinical summary was aggregated from multiple sources. Caution should be exercised in using it in the provision of clinical care. This summary normalizes information from multiple sources, and as a consequence, information in this document may materially change the coding, format and clinical context of patient data. In addition, data may be omitted in some cases. CLINICAL DECISIONS SHOULD BE BASED ON THE PRIMARY CLINICAL RECORDS. [employer] provides no warranty or guarantee of the accuracy or completeness of information in this document.
[2024-09-25 22:43] VITALS: BP 116/68; PULSE 71; RESP 16; TEMP 36.6; O2SAT 97
[2024-09-25] MEDS: Ibuprofen 400 MG Tablet 800 MG PO (22:44)
[2024-09-25] MEDS: Sertraline 50 MG Tablet 25 MG PO (22:51)
[2024-09-25] MEDS: Spironolactone 50 MG Tablet PO (22:51)
[2024-09-26 05:05] VITALS: BP 113/52; PULSE 64; RESP 16; TEMP 36.4; O2SAT 97
[2024-09-26 05:55] LABS: Absolute Lymphocyte Count 1.28 X10^3/uL (0.83-4.51); Absolute Neutrophil Count 6.8 X10^3/uL (2.0-7.7); Basophil# 0.09 X10^3/uL; Basophil% 0.9 % (0-1); Eosinophil# 0.22 X10^3/uL; Eosinophils% 2.3 % (0-5); Hematocrit 39.3 % (37-47); Hemoglobin 12.9 g/dL (12.0-15.0); Lymphocyte # 1.28 X10^3/ul (0.83-4.51); Lymphocyte % 13.1 % (19-41); Mean Corp Hgb Conc 32.8 g/dL (32-36); Mean Corpuscular Hgb 29.3 pg (27.0-32.0); Mean Corpuscular Volume 89.1 fL (81-99); Mean Platelet Vol. 8.5 fl (6.2-12.0); Monocyte# 1.36 X10^3/uL; NRBC Flagged by Analyzer 0 % (0-5); Neutrophil # 6.75 X10^3/uL (2.7-7.7); Neutrophil % 69.3 % (47-70); Platelet Count 344 K/mm3 (150-450); RBC Distribution Width CV 12.1 % (11.6-14.6); RBC Distribution Width SD 39.8 fl (35.1-43.9); Red Blood Count 4.41 M/mm3 (4.2-5.4); White Blood Count 9.7 K/mm3 (4.4-11.0)
[2024-09-26 06:17] LABS: ALB/GLOB Ratio 1.3 RATIO (0.9-2.4); AST(SGOT) 23 U/L (<=31); Alanine Aminotransfer ALT/SGPT 17 U/L (<=34); Albumin, Serum 3.9 g/dL (3.4-4.8); Alkaline Phosphatase 42 U/L (35-104); Anion Gap 11 (5-15); BUN 13 mg/dL (4-19); BUN/Creat Ratio 12.5 RATIO (10-20); Calcium,Total 9.2 mg/dL (7.6-11.0); Chloride 104 mmol/L (98-108); Creatinine, Serum 1.02 mg/dL (0.70-1.20); EST Glomerular Filtration Rate 62 (>60); Estimated Creatinine Clearance 57.16 ml/min (50-250); Globulin 2.9 g/dL (2.2-4.2); Glucose 110 mg/dL (70-99); Magnesium 2.3 mg/dL (1.5-2.2); Phosphorus 4.6 mg/dL (2.7-4.5); Potassium 4.5 mmol/L (3.3-5.1); Protein, Total 6.8 g/dL (5.9-8.4); Sodium Level 139 mmol/L (133-145); Total Bilirubin 0.39 mg/dL (0.00-1.30)
[2024-09-26 08:20] VITALS: BP 111/69; PULSE 78; RESP 16; TEMP 37.2; O2SAT 95
[2024-09-26] MEDS: Acetaminophen 325 MG Tablet 650 MG PO (08:30)
[2024-09-26] MEDS: levoFLOXacin IV 750 MG/150 ML BAG 100 MG IV (09:25)
[2024-09-26] MEDS: Enoxaparin 40 MG/0.4 ML Syringe SC (09:26)
--- NOTE | 2024-09-26 10:57 | DCINST_ITS ---
Discharge Instructions Diet Discharge Diet: No restrictions DC O2, CPAP, BIPAP needs Home O2 Discharge instructions: No Dressing / Incision Discharge Activity: Return to Normal Activity Dressing / Incision Call your doctor if your incision/area has: Increased Redness Call your doctor if you observe: Fever of 101 or Higher, Shortness of breath, Dizziness, Fainting spells, Swelling in the ankles, Chest pain and Increased palpitations (irregular heartbeat) Follow Up Care Test Results: Test results from this visit will be discussed in further detail at your follow- up appointment, if applicable. Discharge Plan Admission Admit Date/Time: 09/25/24 17:48 Attending Provider: Froylan Nuñez Primary Care Provider: Laverne Falcon Consulting Providers: Jamila Talley Discharge Orders/Prescriptions Prescriptions: New levofloxacin 750 mg tablet 750 mg PO DAILY Qty: 6 0RF Continued sertraline 25 mg tablet 25 mg PO DAILY spironolactone 50 mg tablet 50 mg PO QAM Patient Comments: PT IS NOT TAKING WHILE TAKING HER BACTRIM. calcium 100 mg capsule 200 mg PO DAILY Patient Comments: UNSURE OF STRENGTH, BUT TAKES TWO BIG PILLS biotin 1 mg capsule 2 mg PO DAILY Patient Comments: GUMMIES, UNSURE OF STRENGTH cetirizine [24Hour Allergy] 10 mg tablet 10 mg PO DAILY PRN (Reason: allergy symptoms) Discontinued sulfamethoxazole-trimethoprim [Bactrim] 400-80 mg tablet 1 tab PO BID Referrals / Follow Up: Laverne Falcon MD [Primary Care Provider] - Within 1 Week Disposition Disposition (needs filled in before D/C Order can be placed): Home, Self Care
--- NOTE | 2024-09-26 11:28 | CASEMGMT ---
ANTONIO CAUSEY Assessment Face to Face with patient for initial transition planning/care coordination assessment. ANTONIO CAUSEY introduced self and role at [facility], pt voices understanding. Pt is A&Ox4 and is resting comfortably in bed and is calm. Care providers, pharmacy, and demographics verified. Admitting dx:Cellulitis LACE Strata: 1 PCP: Laverne Falcon Specialists: Denies Preferred Pharmacy: [facility] Insurance: ANTHEM Prescription Benefit: Yes LNOK: [place] (H), Leida Gonzales (Mother) Living Arrangements: Pt lives with her and 33 y/o son in a 2 story home with a basement and 1 step to enter ADLs/IADLs: Indep Transportation: Self, DME: Denies HHC/SNF: Denies Pt?s goal: Home Plan: Home, no additional needs. Pt states that she is able to care for her wound per herself and her and denies any additional home needs today. Pt was educated about the [facility] but denies the need. Pt states that she feels safe returning home today with her family and declines further DC needs. Report given to FLORA ALVAREZ CM. Reece Landa RN, CM
--- NOTE | 2024-09-26 11:50 | CASEMGMT ---
Addendum entered by Renetta Low 09/26/24 11:52: Pt aware she is to f/u with Dr Falcon in 1 week. Original Note: RN PADILLA NOTE: DC order is in. RN CM to room. Pt sitting up in chair. She would like [id number]. Call placed to Ina in the pharmacy and she was notified. Pt denies having other discharge needs or concerns. Rock POLANCON RN CM
--- NOTE | 2024-09-26 16:23 | PCM.DC.SUM ---
Providers Date of Admission: 09/25/24 Primary Care Physician: Dr. Laverne Falcon MD Reason For Visit: CELLULITIS Diagnosis Discharge Diagnosis (1) Cellulitis: Status: Acute Code(s): L03.90 - Cellulitis, unspecified Medications at Discharge Home Medications sertraline 25 mg tablet 25 mg PO DAILY 06/11/24 spironolactone 50 mg tablet 50 mg PO QAM 06/11/24 biotin 1 mg capsule 2 mg PO DAILY 07/23/24 calcium 100 mg capsule 200 mg PO DAILY 07/23/24 cetirizine 10 mg tablet (24Hour Allergy) 10 mg PO DAILY PRN allergy symptoms 09/25/24 levofloxacin 750 mg tablet 750 mg PO DAILY #6 tabs 09/26/24 Hospital Course Operations None Procedures None Summary of Care Provided Minutes Spent on Discharge: 34 Hospital Course: Per HPI: SARAH FITZGERALD, is a 64 F who present to the emergency department at [facility] on 09/25/2024 with a chief complaint of right lower extremity swelling and erythema. Patient was recently in [place] over the weekend and on Sunday she was at [employer] and felt like she got a bite or sting her right lateral leg but never actually saw an insect. Since that point in time she has developed a worsening right lower extremity swelling and erythema along with pain. She has had concomitant symptoms to include nausea and had a fever at her primary care's office visit today at 100.5. When she came back home she saw her primary care physician who started her on Bactrim DS twice daily. She has been on that for 3 days now and having worsening symptoms. Her primary care physician reevaluated her today and sent her to the emergency department for admission due to failure of outpatient therapy. Patient has had chills and night sweats as well. She has never had anything like this previously. Vital signs on presentation showed temperature of 98.7, heart rate 103, respiratory 16, blood pressure was 129/71 and pulse ox was 98% on room air. CBC is unremarkable but she does have a left shift with a 71.8% neutrophilia. Chemistry panel is unremarkable other than hyperglycemia with a glucose of 142. A CT of her lower extremity was obtained by the emergency department physician to rule out any abscess or subcutaneous emphysema and while at this showed skin thickening and edema throughout the ankle and soft tissue's of foot it was negative otherwise. She was treated with clindamycin emergency department and will go ahead and transition to Levaquin on admission. I doubt this is MRSA since she has been on Bactrim and has been worsening however an MRSA PCR is pending and we will consider vancomycin if that is positive. She will be admitted due to outpatient failure. Hospital Course: 1. Right lower extremity cellulitis secondary to a bug bite?64-year-old female was recently in [place] when she had a bug bite on the lateral aspect of her right ankle. She went to her PCPs office when she got back home and she was started on Bactrim however she continued to have some fever so she presented to the hospital as it was not getting significantly improved. In the ER she had no leukocytosis and she has been afebrile for over 24 hours. On my evaluation it seems less like a cellulitis and more of just a localized reaction potentially to a spider bite given the blistering and everything else going on. There is no significant superficial erythema extending away from the localized wound. CT scan did not show any abscess or worsening subdermal infection. I do not feel like at the moment she needs to be seen by surgical service. She was transitioned to Levaquin which we will continue on discharge at 750 mg for 6 more days. She did request to be discharged today if possible, I discussed with her the risks and benefits of going home and she would still like to go home today. We discussed indications to return to the hospital. Physical Exam Narrative General: Alert, Oriented x3, Cooperative, No apparent distress HEENT: Atraumatic, PERRLA, EOMI, Normocephalic Oral: Moist Mucosa Neck: Supple, No JVD Lungs: Clear to auscultation, Normal air movement, No rhonchi, No wheeze, No rales Cardiovascular: Regular rate, Regular Rhythm, Normal S1, Normal S2, No murmurs Abdomen: Soft, Non Tender, Non-Distended, No Hepato-splenomegaly Extremities: No edema, Capillary Refill Less than 3 Seconds Skin: Right lateral ankle with none open wound due to insect bite with no significant surrounding erythema. Musculoskeletal: No Tenderness to Palpation of Joints or Extremities Neurological: No focal neurological deficits, Motor Exam 5/5 strength throughout, Sensory exam intact to light touch and pain Psych/Mental Status: Normal Affect, Appropriate Weight / BMI Weight Weight: 165 lb Body Mass Index (BMI) 27.4 ABG / Lab / Microbiology Data 09/26/24 05:09 09/26/24 05:09 Laboratory: Laboratory Results - last 24 hr 09/25/24 16:30: WBC 8.6, RBC 4.72, Hgb 14.1, Hct 41.0, MCV 86.9, MCH 29.9, MCHC 34.4, RDW Std Deviation 38.7, RDW Coeff of Levi 12.0, Plt Count 354, MPV 8.3, Immature Gran % (Auto) 0.200, Neut % (Auto) 71.8 H, Lymph % (Auto) 16.4 L, [place] % (Auto) 10.0, Eos % (Auto) 0.8, Baso % (Auto) 0.8, Absolute Neuts (auto) 6.2, Absolute Lymphs (auto) 1.41, Nucleated RBC % 0, ESR 26, Sodium 134, Potassium 4.4, Chloride 101, Carbon Dioxide 20.8 L, Anion Gap 12, BUN 11, Creatinine 1.05, Estim Creat Clear Calc 54.11, Est GFR (MDRD) Non-Af 60, BUN/Creatinine Ratio 10.3, Glucose 142 H, Hemoglobin A1c 6.0 H, Calcium 9.1, C-React Prot Ext Range 16.00 H, Procalcitonin 0.15 H 09/26/24 05:09: WBC 9.7, RBC 4.41, Hgb 12.9, Hct 39.3, MCV 89.1, MCH 29.3, MCHC 32.8, RDW Std Deviation 39.8, RDW Coeff of Levi 12.1, Plt Count 344, MPV 8.5, Immature Gran % (Auto) 0.400, Neut % (Auto) 69.3, Lymph % (Auto) 13.1 L, [place] % (Auto) 14.0 H, Eos % (Auto) 2.3, Baso % (Auto) 0.9, Absolute Neuts (auto) 6.8, Absolute Lymphs (auto) 1.28, Nucleated RBC % 0, Sodium 139, Potassium 4.5, Chloride 104, Carbon Dioxide 24.0, Anion Gap 11, BUN 13, Creatinine 1.02, Estim Creat Clear Calc 57.16, Est GFR (MDRD) Non-Af 62, BUN/Creatinine Ratio 12.5, Glucose 110 H, Calcium 9.2, Phosphorus 4.6 H, Magnesium 2.3 H, Total Bilirubin 0.39, AST 23, ALT 17, Alkaline Phosphatase 42, Total Protein 6.8, Albumin 3.9, Globulin 2.9, Albumin/Globulin Ratio 1.3 Radiography Diagnostic Testing: Radiology Impression Lower Extremity CT 09/25/24 16:29 IMPRESSION: Skin thickening and edema throughout the ankle and foot soft tissues, suggestive of the clinical diagnosis of cellulitis. No well-formed drainable fluid collection or subcutaneous emphysema. Reading Location: [id number] D/C Instructions Discharge Diet: No restrictions Call your doctor if your incision/area has: Increased Redness Call your doctor if you observe: Fever of 101 or Higher, Shortness of breath, Dizziness, Fainting spells, Swelling in the ankles, Chest pain and Increased palpitations (irregular heartbeat) DC O2, CPAP, BIPAP Needs Home O2 Discharge instructions: No Meaningful Use Info Meaningful Use Meaningful Use Diagnoses (Choose all that apply): None applicable Ischemic Stroke Statin Dosing Therapy Reference: STATIN DOSE THERAPY REFERENCE: * Patients > 75 years receive moderate or high dose statin therapy. * Patients 75 years or YOUNGER should receive HIGH intensity statin dose unless contraindicated. You will be required to document reason for non-treatment if statin daily dose does not meet guidelines. HIGH DOSE STATIN THERAPY DAILY Atorvastatin > than or = to 40 mg Rosuvastatin > than or = to 20 mg Amlodipine + Atorvastatin > than or = to 2.5/40 mg Ezetimibe + Simvastatin 10/80 mg Simvastatin 80mg Discharge Plan Admission Admit Date/Time: 09/25/24 17:48 Attending Provider: Froylan Nuñez Primary Care Provider: Laverne Falcon Consulting Providers: Jamila Talley Discharge Orders/Prescriptions Prescriptions: New levofloxacin 750 mg tablet 750 mg PO DAILY Qty: 6 0RF Continued sertraline 25 mg tablet 25 mg PO DAILY spironolactone 50 mg tablet 50 mg PO QAM Patient Comments: PT IS NOT TAKING WHILE TAKING HER BACTRIM. calcium 100 mg capsule 200 mg PO DAILY Patient Comments: UNSURE OF STRENGTH, BUT TAKES TWO BIG PILLS biotin 1 mg capsule 2 mg PO DAILY Patient Comments: GUMMIES, UNSURE OF STRENGTH cetirizine [24Hour Allergy] 10 mg tablet 10 mg PO DAILY PRN (Reason: allergy symptoms) Discontinued sulfamethoxazole-trimethoprim [Bactrim] 400-80 mg tablet 1 tab PO BID Referrals / Follow Up: Laverne Falcon MD [Primary Care Provider] - Within 1 Week Disposition Disposition (needs filled in before D/C Order can be placed): Home, Self Care Charges/Coding Visit Charges Inpatient E&M: 01062 Disch Hosp >30min
== END 2024-09-26 12:32 | disposition home or self-care (01) ==
LOC: ED 17:31 → MS3 09-26 07:13
PROVIDERS: Admitting Provider Internal Medicine; Emergency Provider Emergency Medicine; PCP Family Medicine; Visit Provider Family Medicine
DX: L03.115 Cellulitis of right lower limb (principal); F32.A Depression, unspecified; J45.40 Moderate persistent asthma, uncomplicated; S90.561A Insect bite (nonvenomous), right ankle, initial encounter; J30.2 Other seasonal allergic rhinitis; W57.XXXA Bitten or stung by nonvenomous insect and other nonvenomous arthropods, initial encounter; Y92.22 Religious institution as the place of occurrence of the external cause; R73.9 Hyperglycemia, unspecified; Z79.899 Other long term (current) drug therapy; Z88.0 Allergy status to penicillin; Z88.1 Allergy status to other antibiotic agents
CPT/HCPCS: 36415; 73701; 80048; 80053; 83036; 83735; 84100; 84145; 85025; 85652; 86140; 96365; 96366; 96372; 96375; 99221; 99284; Q9967; A4216; G0378; J2405

== ENCOUNTER → 2025-02-23 | Outpatient (CLI) | payer BC, SELFPAY ==
--- NOTE | 2025-02-23 15:51 | BI_ITS ---
EXAM: BI/SCRN MAMM (CAD)W/MAYRA BILAT
== END | disposition home or self-care (01) ==
LOC: OPBI 15:50
PROVIDERS: PCP Family Medicine; Referring Provider Family Medicine; Visit Provider Family Medicine
DX: Z12.31 Encounter for screening mammogram for malignant neoplasm of breast (principal)
CPT/HCPCS: 77063; 77067